=== PATIENT | male | born 1960 | race Caucasian/White ===

== ENCOUNTER 2016-06-08 10:30 | Inpatient (IN) | payer MEDICARE, MEDICAID ==
[~2016-06-08] VITALS: Ht 188 cm; Wt 120.4 kg
[~2016-06-08 10:30] MED LIST: ASPI81TA2 PO; BUSP15TA3 PO; CARV3.123 PO; FLUT12AE5 INH; HYDR-3841 PO; LEVA15HF5 INH; LISI-621 PO; OMEP20TA24 PO; QUET200T3 PO; QUET25TA73 PO; QUET300T3 PO; RISP50DI IM; ROSU20TA PO; [UNRECOGNIZED DRUG - CODE] PO
[2016-07-10] VITALS (26 sets, daily range): BP systolic 117–178; BP diastolic 70–96; PULSE 71–105; RESP 7–25; TEMP 97–97.8; O2SAT 75–100; Ht 188 cm; Wt 120.4 kg
[2016-07-10] MEDS ORDERED: HEPARIN SUB-Q 5,000 unit/0.5ml vial SQ ONE (07:00)
[2016-07-10] MEDS ORDERED: LR 1,000 ML IV SCH (07:00)
[2016-07-10] MEDS ORDERED: LIDOCAINE 1% (10mg/ml) 2ml SDV INJ ONE (07:00)
[2016-07-10] MEDS ORDERED: ERTAPENEM 1 G in NORMAL SALINE 100 ML IV ONE (08:00)
--- OUTSIDE RECORDS SUMMARY | 2016-07-10 08:52 | XMS REPORT | Referral Summary ---
Author Author [facility], [facility] Organization [facility] Address Unknown Phone Unavailable Care Team Providers Care Liquified Natural Gas Technician Name Role Phone Julian Garzon Primary Care Physician [phone] Encounter VC Date(s): 01/24/16 - 01/24/16 [facility], [address] [place] [address] Discharge Disposition: 01-Home or Self Care Attending Physician: George Sanford APRN Admitting Physician: George Sanford APRN Vital Signs Most recent to 1 oldest [Reference Range]: Temperature Tympanic 36.9 degC [36.6-38.1 degC] (01/24/16 8:53 AM) Peripheral Pulse 100 bpm Rate [60-100 bpm] (01/24/16 8:53 AM) Respiratory Rate 16 br/min [14-20 br/min] (01/24/16 8:53 AM) Blood Pressure 150/90 mmHg [90-140/60-90 mmHg] *HI* (01/24/16 8:53 AM) SpO2 97 % (01/24/16 8:53 AM) Problem List Condition Effective Dates Status Health Status Informant Allergies(Confirmed) Active Anxiety Active disorder(Confirmed) Asperger's Resolved disorder(Confirmed) Benign essential Active hypertension(Confirm ed) Bipolar(Confirmed) Resolved Bronchitis(Confirmed Active ) Drug Resolved overdose(Confirmed)1 Elevated blood < 12/09/13 Resolved pressure reading without diagnosis of hypertension(Confirm ed) High Active cholesterol(Confirme d) Insomnia(Confirmed) Active Bipolar Active disorder(Confirmed) Bed Active wetting(Confirmed) Obesity(Confirmed) Active patient Overweight(Confirmed Active ) Pneumonia(Confirmed) Active Reaction - to Resolved clozaril(Confirmed)2 Schizo affective Resolved disorder(Confirmed) Schizophrenia(Confir Resolved med)3 Suicide Resolved ideation(Confirmed)4 Tension Active headache(Confirmed) Diabetes mellitus, Active type 2(Confirmed) 1hospitalization 2013 2Seizures and granulocytopenia - 1990 3[facility] hospitalizations X 2 4hospitalization 2013 Allergies, Adverse Reactions, Alerts Substance Reaction Severity Status cloZAPine Active iodine Active Zoloft1 Active 1Causes Diarrhea Medications busPIRone 15 mg oral tablet 15 mg 1 tabs, Oral, BID, Anxiety, 0 Refill(s) Start Date: 10/27/15 Status: Ordered Crestor 20 mg oral tablet 20 mg 1 tabs, Oral, Daily, # 30 tabs, 6 Refill(s), Pharmacy: [facility] # [id number], 1 tabs Oral Daily Start Date: 11/30/15 Status: Ordered divalproex sodium 500 mg oral tablet, extended release 1,000 mg 2 tabs, Oral, Bedtime (once a day) Start Date: 11/01/15 Status: Ordered Flovent HFA 110 mcg/inh inhalation aerosol 220 mcg 2 puffs, Inhalation, BID, # 3 Each, 3 Refill(s), Pharmacy: [facility] #[id number] Start Date: 11/30/15 Status: Ordered Glucometer (DME) DME Item RELION PRIME PT TEST ONCE DAILY DX E11.9, See Instructions, # 1 Each , 0 Refill(s), Pharmacy: [id number], RELION PRIME ; PT TEST ONCE DAILY; DX E11.9, Supply Start Date: 09/16/15 Status: Ordered Glucometer Lancets (DME) DME Item RELION PRIME PT TEST ONCE DAILY DX E11.9, See Instructions, # 100 Each, 3 Refill(s), Pharmacy: [id number], RELION PRIME ; PT TEST ONCE DAILY; DX E11.9, Supply Start Date: 09/09/15 Status: Ordered Glucometer strips (DME) DME Item RELION PRIME PT TEST ONCE DAILY DX E11.9, See Instructions, # 100 Each, 3 Refill(s), Pharmacy: [id number], RELION PRIME ; PT TEST ONCE DAILY; DX E11.9, Supply Start Date: 09/09/15 Status: Ordered lisinopril 20 mg oral tablet See Instructions, TAKE 1 TABLET BY MOUTH DAILY, # 28 tabs, 5 Refill(s), eRx: [place], [facility], TAKE 1 TABLET BY MOUTH DAILY Start Date: 11/30/15 Status: Ordered omeprazole 20 mg oral delayed release capsule See Instructions, TAKE 1 CAPSULE BY MOUTH DAILY, # 28 caps, 5 Refill(s), eRx: [facility] [place], TAKE 1 CAPSULE BY MOUTH DAILY Start Date: 11/30/15 Status: Ordered QUEtiapine 25 mg oral tablet 25 mg 1 tabs, Oral, TID, Psychosis, 0 Refill(s) Start Date: 11/25/14 Status: Ordered QUEtiapine 400 mg oral tablet 400 mg 1 tabs, Oral, Daily, TAKE AT 6PM WITH SUPPER. TAKE WITH 50MG TAB, 0 Refill(s) Start Date: 09/09/14 Status: Ordered QUEtiapine 50 mg oral tablet 50 mg 1 tabs, Oral, Daily, TAKE AT 6PM WITH SUPPER. TAKE WITH 400MG TAB, 0 Refill(s) Start Date: 09/09/14 Status: Ordered RisperDAL Consta 50 mg/2 weeks intramuscular injection, extended release IntraMuscular, 0 Refill(s) Start Date: 02/04/14 Status: Ordered SEROquel XR Oral, qPM, 0 Refill(s) Start Date: 11/10/15 Status: Ordered Xopenex HFA 45 mcg/inh inhalation aerosol 1 puffs, Inhalation, q4hr, # 1 Each, 6 Refill(s), Pharmacy: [facility] # [id number] Start Date: 11/30/15 Status: Ordered Results No data available for this section Immunizations Vaccine Date Refusal Reason influenza virus vaccine, H1N1, inactivat 02/02/12 influenza virus vaccine, inactivated 01/24/16 influenza virus vaccine, inactivated 01/27/15 influenza virus vaccine, inactivated 02/04/14 influenza virus vaccine, live 01/17/13 Procedures Procedure Date Related Diagnosis Body Site Drug overdose1 2013 Schizoaffective disorder2 2013 Suicide ideation3 2011 Drug overdose4 2009 Drug overdose5 2008 Drug overdose6 2004 Drug reaction7 1990 Cyst - removed from chest Schizoaffective disorder8 1Suicide ideation 2He also has Asperger's syndrome. He was hospitalized for medication adjustment. 3Hospitalization 4Lorazepam 5Multiple drugs 6Lorazepam 7He was hospitalized with seizures and granulocytopenia secondary to Clozaril 8Was hospitalized at [place] in 1989, 1999, 2000; he had hospitalizations at [facility] twice in the past; Social History Social History Type Response Smoking Status Never smoker Assessment and Plan No data available for this section
--- OUTSIDE RECORDS SUMMARY | 2016-07-10 08:52 | XMS REPORT | Referral Summary ---
Author Author [facility], [facility] Organization [facility] Address Unknown Phone Unavailable Care Team Providers Care Independent Contractor Name Role Phone Julian Garzon Primary Care Physician [phone] Encounter Date(s): 03/14/16 - 03/14/16 [facility], [address] [place] [address] Discharge Diagnosis: Chest pain Discharge Diagnosis: Dizziness Discharge Diagnosis: Bipolar disorder Discharge Diagnosis: Diarrhea Discharge Diagnosis: High cholesterol Discharge Diagnosis: Anxiety disorder Discharge Diagnosis: Benign essential hypertension Discharge Diagnosis: Diabetes mellitus, type 2 Discharge Diagnosis: Central obesity Discharge Disposition: 01-Home or Self Care Attending Physician: Hayes Garzon MD Admitting Physician: Hayes Garzon MD Vital Signs Most recent to 1 oldest [Reference Range]: Temperature Tympanic 36.6 degC [36.6-38.1 degC] (03/14/16 12:58 PM) Peripheral Pulse 84 bpm Rate [60-100 bpm] (03/14/16 12:58 PM) Blood Pressure 109/61 mmHg [90-140/60-90 mmHg] (03/14/16 12:58 PM) Problem List Condition Effective Dates Status Health [...] Daily, # 30 tabs, 6 Refill(s), Pharmacy: [facility] # [id number], 1 tabs Oral Daily Start Date: 11/30/15 Status: Ordered divalproex sodium 500 mg oral tablet, extended release 1,000 mg 2 tabs, Oral, Bedtime (once a day) Start Date: 11/01/15 Status: Ordered Flovent HFA 110 mcg/inh inhalation aerosol 220 mcg 2 puffs, Inhalation, BID, # 3 Each, 3 Refill(s), Pharmacy: [facility] #[id number] Start Date: 11/30/15 Status: Ordered Glucometer (DME) DME Item RELION PRIME PT TEST ONCE DAILY DX E11.9, See Instructions, # 1 Each , 0 Refill(s), Pharmacy: [facility], RELION PRIME ; PT TEST ONCE DAILY; DX E11.9, Supply Start Date: 09/16/15 Status: Ordered Glucometer Lancets (DME) DME Item RELION PRIME PT TEST ONCE DAILY DX E11.9, See Instructions, # 100 Each, 3 Refill(s), Pharmacy: [facility], RELION PRIME ; PT TEST ONCE DAILY; DX E11.9, Supply Start Date: 09/09/15 Status: Ordered Glucometer strips (DME) DME Item RELION PRIME PT TEST ONCE DAILY DX E11.9, See Instructions, # 100 Each, 3 Refill(s), Pharmacy: [facility], RELION PRIME ; PT TEST ONCE DAILY; DX E11.9, Supply Start Date: 09/09/15 Status: Ordered lisinopril 20 mg oral tablet See Instructions, TAKE 1 TABLET BY MOUTH DAILY, # 28 tabs, 5 Refill(s), eRx: [place], [facility], TAKE 1 TABLET BY MOUTH DAILY Start Date: 11/30/15 Status: Ordered omeprazole 20 mg oral delayed release capsule See Instructions, TAKE 1 CAPSULE BY MOUTH DAILY, # 28 caps, 5 Refill(s), eRx: [facility] [employer] [place], TAKE 1 CAPSULE BY MOUTH DAILY Start [...] mg 1 tabs, Oral, Daily, TAKE AT 2 6PM WITH SUPPER. TAKE WITH 400MG TAB, 0 Refill(s) Start Date: 09/09/14 Status: Ordered RisperDAL Consta 50 mg/2 weeks intramuscular injection, extended release IntraMuscular, 0 Refill(s) Start Date: 02/04/14 Status: Ordered SEROquel XR Oral, qPM, 0 Refill(s) Start Date: 11/10/15 Status: Ordered Xopenex HFA 45 mcg/inh inhalation aerosol 1 puffs, Inhalation, q4hr, # 1 Each, 6 Refill(s), Pharmacy: [facility] # [id number] Start Date: 11/30/15 Status: Ordered Results Hematology Most recent to 1 oldest [Reference Range]: WBC [5.0-10.0 8.6 10*3/uL 10*3/uL] (03/14/16 2:20 PM) RBC [3.70-5.20] 4.43 (03/14/16 2:20 PM) Hgb [12.0-16.0 13.1 gm/dL gm/dL] (03/14/16 2:20 PM) Hct [40.0-54.0 %] 38.9 % *LOW* (03/14/16 2:20 PM) MCV [80.0-96.0 fL] 87.8 fL (03/14/16 2:20 PM) MCH [26.0-34.0 pg] 29.6 pg (03/14/16 2:20 PM) MCHC [32.0-36.0 33.7 gm/dL gm/dL] (03/14/16 2:20 PM) RDW [0.0-14.5 %] 13.9 % (03/14/16 2:20 PM) Platelet [150-400 193 10*3/uL 10*3/uL] (03/14/16 2:20 PM) MPV [8.8-14.8 fL] 10.6 fL (03/14/16 2:20 PM) Neutrophils [50-70 55 % %] (03/14/16 2:20 PM) Lymphocytes [20-40 29 % %] (03/14/16 2:20 PM) Monocytes [4-8 %] 15 % *HI* (03/14/16 2:20 PM) Eosinophils [0-6 %] 1 % (03/14/16 2:20 PM) Basophils [0-2 %] 0 % (03/14/16 2:20 PM) Neutro Absolute 4.77 10*3 [2.50-7.00 10*3] (03/14/16 2:20 PM) Lymph Absolute 2.49 10*3 [1.00-4.00 10*3] (03/14/16 2:20 PM) [place] Absolute 1.30 10*3 [0.20-0.80 10*3] *HI* (03/14/16 2:20 PM) Eos Absolute 0.06 10*3 [0.00-0.60 10*3] (03/14/16 2:20 PM) Baso Absolute 0.01 [0.00-0.30] (03/14/16 2:20 PM) Chemistry Most recent to 1 oldest [Reference Range]: Hgb A1c [4.1-5.6 %] 6.5 % *HI* (03/14/16 2:20 PM) eAvg Glucose 139.9 mg/dL (03/14/16 2:20 PM) Immunizations Vaccine Date Refusal Reason tetanus/diphth/pertuss (Tdap) adult/adol 03/14/16 influenza virus vaccine, H1N1, inactivat 02/02/12 influenza virus vaccine, inactivated 01/24/16 influenza virus vaccine, inactivated 01/27/15 influenza virus vaccine, inactivated 02/04/14 influenza virus vaccine, live 01/17/13 Procedures Procedure Date Related Diagnosis Body Site Drug overdose1 2013 Schizoaffective disorder2 2013 Suicide ideation3 2011 Drug overdose4 2008 Drug overdose5 2008 Drug overdose6 2004 Drug reaction7 1990 Cyst - removed from chest Schizoaffective disorder8 1Suicide ideation 2He also has Asperger's syndrome. He was hospitalized for medication adjustment. 3Hospitalization 4Lorazepam 5Multiple drugs 6Lorazepam 7He was hospitalized with seizures and granulocytopenia secondary to Clozaril 8Was hospitalized at [place] in 1989, 1999, 2000; he had hospitalizations at [facility] twice in the past; Social History Social History Type Response Smoking Status Never smoker Assessment and Plan Extracted from: Title: CRMMP Author: Hayes Garzon MD Date: 03/14/16 Impression and Plan Diagnosis Need for vaccination ([id number] Z23, Working, Medical). Chest pain (FLG01-TW R07.9, Discharge, Medical). Dizziness ([id number] R42, Discharge, Medical). Bipolar disorder (AQD53-DV F31.9, Discharge, Medical). Anxiety disorder (MZZ79-OG F41.9, Discharge, Medical). Diarrhea (KDF11-KV R19.7, Discharge, Medical). Benign essential hypertension (FFU95-[id number] I10, Discharge, Medical). Diabetes mellitus, type 2 (CEX21-RX E11.9, Discharge, Medical). High cholesterol (YLX92-ML E78.00, Discharge, Medical). Central obesity (TPJ04-WB E65, Discharge, Medical). Orders Orders (Selected) Outpatient Orders InProcess (In Process) eGFR: Ordered CBC w/ Differential: Hgb A1c: Canceled CMP: Troponin: Completed Boostrix (Tdap) intramuscular suspension: 0.5 mL, IntraMuscular, Once Message for Lab: Future (On Hold) BMP: Fasting Lipid Profile: Hgb A1c: .
--- OUTSIDE RECORDS SUMMARY | 2016-07-10 08:53 | XMS REPORT | Referral Summary ---
Author Author [facility], [facility] Organization [facility] Address Unknown Phone Unavailable Care Team Providers Care Guidance Adviser Name Role Phone Julian Garzon Primary Care Physician [phone] Encounter Date(s): 03/23/16 - 03/23/16 [facility], [address] [place] [address]- Discharge Diagnosis: Obesity Discharge Diagnosis: Chronic schizoaffective disorder Discharge Diagnosis: Benign essential hypertension Discharge Diagnosis: GERD (gastroesophageal reflux disease) Discharge Diagnosis: Diabetes mellitus, type 2 Discharge Diagnosis: Atypical chest pain Discharge Disposition: 01-Home or Self Care Attending Physician: Hayes Garzon MD Admitting Physician: Hayes Garzon MD Vital Signs Most recent to 1 oldest [Reference Range]: Peripheral Pulse 90 bpm Rate [60-100 bpm] (03/23/16 1:39 PM) Respiratory Rate 16 br/min [14-20 br/min] (03/23/16 1:39 PM) Blood Pressure 126/78 mmHg [90-140/60-90 mmHg] (03/23/16 1:39 PM) SpO2 94 % (03/23/16 1:39 PM) Problem List Condition Effective Dates Status Health Status Informant Allergies(Confirmed) Active Anxiety Active disorder(Confirmed) Asperger's Resolved disorder(Confirmed) Benign essential Active hypertension(Confirm ed) Bipolar(Confirmed) Resolved Bronchitis(Confirmed Active ) Chronic Active schizoaffective disorder(Confirmed) Drug Resolved overdose(Confirmed)1 Elevated blood < 12/09/13 Resolved pressure reading without diagnosis of hypertension(Confirm ed) GERD Active (gastroesophageal reflux disease)(Confirmed) High Active cholesterol(Confirme d) Insomnia(Confirmed) Active Bipolar Active disorder(Confirmed) Bed Active wetting(Confirmed) Obesity(Confirmed) Active patient Overweight(Confirmed Active ) Pneumonia(Confirmed) Active Reaction - to Resolved clozaril(Confirmed)2 Schizo affective Active disorder(Confirmed) Schizophrenia(Confir Resolved med)3 Suicide Resolved ideation(Confirmed)4 Tension Active headache(Confirmed) Diabetes mellitus, Active type 2(Confirmed) 1hospitalization 2013 2Seizures and granulocytopenia - 1990 3[facility] hospitalizations X 2 4hospitalization 2013 Allergies, Adverse Reactions, Alerts Substance Reaction Severity Status cloZAPine Active iodine Active Zoloft1 Active 1Causes Diarrhea Medications aspirin 81 mg, Oral, Daily, takes 1 PILL DAILY, 0 Refill(s) Start Date: 03/16/16 Status: Ordered busPIRone 15 mg oral tablet 15 mg 1 tabs, Oral, BID, Anxiety, 0 Refill(s) Start Date: 10/27/15 Status: Ordered carvedilol 3.125 mg oral tablet 3.125 mg 1 tabs, Oral, BID, 0 Refill(s) Start Date: 03/16/16 Status: Ordered Crestor 20 mg oral tablet 20 mg 1 tabs, Oral, Daily, # 30 tabs, 6 Refill(s), Pharmacy: [facility] # [id number], 1 tabs Oral Daily Start Date: 11/30/15 Status: Ordered divalproex sodium 500 mg oral tablet, extended release 1,000 mg 2 tabs, Oral, Bedtime (once a day) Start Date: 11/01/15 Status: Ordered Flovent HFA 110 mcg/inh inhalation aerosol 220 mcg 2 puffs, Inhalation, BID, # 3 Each, 3 Refill(s), Pharmacy: [facility] #[id number] Start Date: 11/30/15 Status: Ordered Glucometer (DME) DME Item RELION PRIME PT TEST ONCE DAILY DX E11.9, See Instructions, # 1 Each , 0 Refill(s), Pharmacy: [facility], RELION PRIME ; PT TEST ONCE DAILY; DX E11.9, Supply Start Date: 09/16/15 Status: Ordered Glucometer Lancets (DME) DME Item RELION PRIME PT TEST ONCE DAILY DX E11.9, See Instructions, # 100 Each, 3 Refill(s), Pharmacy: [facility], RELION PRIME ; PT TEST ONCE DAILY; DX E11.9, Supply Start Date: 09/09/15 Status: Ordered Glucometer strips (DME) DME Item RELION PRIME PT TEST ONCE DAILY DX E11.9, See Instructions, # 100 Each, 3 Refill(s), Pharmacy: [facility], RELION PRIME ; PT TEST ONCE DAILY; DX E11.9, Supply Start Date: 09/09/15 Status: Ordered lisinopril 20 mg oral tablet See Instructions, TAKE 1 TABLET BY MOUTH DAILY, # 28 tabs, 5 Refill(s), eRx: [place], TAKE 1 TABLET BY MOUTH DAILY Start Date: 11/30/15 Status: Ordered omeprazole 20 mg oral delayed release capsule See Instructions, TAKE 1 CAPSULE BY MOUTH BID FOR 2 WEEKS AFTER HOSPITAL STAY, # 28 caps, 5 Refill(s), eRx: [place], TAKE 1 CAPSULE BY MOUTH DAILY Start Date: 11/30/15 Status: Ordered QUEtiapine 25 mg oral tablet 25 mg 1 tabs, Oral, TID, as needed for Psychosis, 0 Refill(s) Start Date: 11/25/14 Status: [...] 0 Refill(s) Start Date: 02/04/14 Status: Ordered Xopenex HFA 45 mcg/inh inhalation aerosol 1 puffs, Inhalation, q4hr, # 1 Each, 6 Refill(s), Pharmacy: [facility] # [id number] Start Date: 11/30/15 Status: Ordered Results No data available for this section Immunizations Vaccine Date Refusal Reason tetanus/diphth/pertuss (Tdap) adult/adol 03/14/16 influenza virus vaccine, H1N1, inactivat 02/02/12 influenza virus vaccine, inactivated 01/24/16 influenza virus vaccine, inactivated 01/27/15 influenza virus vaccine, inactivated 02/04/14 influenza virus vaccine, live 01/17/13 Procedures Procedure Date Related Diagnosis Body Site Drug overdose1 2013 Schizoaffective disorder2 2014 Suicide ideation3 2011 Drug overdose4 2009 Drug overdose5 2009 Drug overdose6 2005 Drug reaction7 1990 Cyst - removed from chest Schizoaffective disorder8 1Suicide ideation 2He also has Asperger's syndrome. He was hospitalized for medication adjustment. 3Hospitalization 4Lorazepam 5Multiple drugs 6Lorazepam 7He was hospitalized with seizures and granulocytopenia secondary to Clozaril 8Was hospitalized at [place] in 1989, 1999, 2000; he had hospitalizations at [facility] twice in the past; Social History Social History Type Response Smoking Status Never smoker Assessment and Plan Extracted from: Title: Hospital follow-up/TCM Author: Hayes Garzon MD Date: 03/23/16 Assessment/Plan Overall he seems to be stabilized and has made some lifestyle efforts. I encouraged him and staying off the pop. Encourage more regular exercise. Follow-up with me again in 3 months. He has follow-up plans with Dr. Anne in one month. 1.Diabetes mellitus, type 2 2.Obesity 3.Benign essential hypertension 4.Atypical chest pain 5.GERD (gastroesophageal reflux disease) 6.Chronic schizoaffective disorder
--- OUTSIDE RECORDS SUMMARY | 2016-07-10 08:53 | XMS REPORT | Continuity of Care Document ---
Author Author [facility] Organization [facility] Address Unknown Phone Unavailable Allergies Active Description Code Type Severity Reaction Onset Reported/Identified Relationship to Patient Clinical Status Yes cloZAPine NKMA N/A N/A 08/14/2013 Yes iodine NKMA N/A N/A 08/14/2013 Yes potassium iodide NKMA N/A N/A 09/17/2013 Yes simvastatin NKMA N/A muscle pain 09/17/2013 Yes sodium iodide NKMA N/A N/A 09/17/2013 Yes Zoloft NKMA N/A N/A 06/10/2014 Medications Problems Procedures Results Encounters ACCT No. Visit Date/Time Discharge Status Pt. Type Provider Facility Loc./Unit Complaint [id number] 06/25/2013 08:50:00 06/25/2013 23 :59:59 CLS Outpatient [id number] 06/04/2013 10:10:00 06/04/2013 23 :59:59 CLS Outpatient [id number] 04/23/2013 10:40:00 04/23/2013 23 :59:59 CLS Outpatient [id number] 03/19/2013 10:20:00 03/19/2013 23 :59:59 CLS Outpatient
--- OUTSIDE RECORDS SUMMARY | 2016-07-10 08:53 | XMS REPORT | Continuity of Care Document ---
Author Author [facility] Organization [facility] Address Unknown Phone Unavailable Support Name Relationship Address Phone ANABELA PINA MD Caregiver [address] [place] [address] [place] [address] GILMAR ESPINO MD Caregiver [address] [place] [address] Unavailable SHYANNE VAUGHAN MD Caregiver [address] [place] [address] [place] [phone] ABDOULAYE ZAMORANO Next Of Kin Unknown [phone] Insurance Providers Payer Name Policy Number Subscriber Name Relationship Medicare [id number] Yvonne Curry 20 Self Medicaid [id number] Yvonne Curry Self Advance Directives Directive Response Recorded Date/Time Advanced Directives Type None 12/10/13 4:55pm Problems Medical Problems Problem Onset Date Status Bipolar disorder Unknown Active Schizoaffective disorder Unknown Active suicidal ideation with attempt Unknown Active Medications Medication Dose Route Sig Days/Qty Instructions Order Date Discontinued Date Status [Albuterol] 2 Puffs IH FOUR TIMES DAILY 12/14/08 12/14/08 Discontinued [Artane] 0.5 Tab PO TWICE A DAY 12/14/08 05/27/12 Discontinued Buspirone Hcl 2 Tab PO THREE TIMES A DAY 12/31/08 05/27/12 Discontinued Citalopram Hydrobromide 1 Tab PO DAILY 12/14/08 05/27/12 Discontinued Divalproex Sodium 3 Tab PO BEDTIME 12/31/08 Active [Flovent Hfa 78482 Gm] 2 Puffs IH TWICE A DAY 12/31/08 05/27/12 Discontinued Ziprasidone Hcl 1 Tab PO TWICE A DAY 12/31/08 05/27/12 Discontinued Ferrous Sulfate 1 Tab PO DAILY 12/31/08 05/27/12 Discontinued Lisinopril 1 Tab PO DAILY 12/31/08 Active Psyllium Seed THREE TIMES A DAY 12/31/08 05/27/12 Discontinued Multivitamins 1 Tab PO DAILY 12/31/08 05/27/12 Discontinued Lansoprazole 1 Tab PO DAILY 12/31/08 05/27/12 Discontinued Risperidone Microspheres 50 Mg IM EVERY TWO WEEKS 12/14/08 Active Quetiapine Fumarate 1 Tab PO DAILY 12/31/08 05/27/12 Discontinued Trazodone Hcl 2 Tab PO BEDTIME 12/31/08 05/27/12 Discontinued Ascorbic Acid 1 Tab PO AM 12/31/08 05/27/12 Discontinued [Xopenex] 12/14/08 Active Clonazepam 1 Mg PO NEEDED 1 Qty 12/31/08 05/27/12 Discontinued Citalopram Hydrobromide 1 Tab PO DAILY 12/31/08 05/27/12 Discontinued [Albuterol] 12/30/08 05/27/12 Discontinued [Flovent] 12/30/08 Active Quetiapine Fumarate 400 Mg PO DAILY 05/27/12 Active Risperidone 1 Mg PO TWICE A DAY 05/27/12 Active Omeprazole 20 Mg PO DAILY 05/27/12 Active Lovastatin 40 Mg PO BEDTIME Take one tablet, by mouth, one time a day ( at bedtime). 12/10/13 Active Social History Social History Problem Response Recorded Date/Time Smoking Status Never smoker 12/10/2013 5:12pm Hx Substance Use Yes 12/10/2013 5:12pm Hx Alcohol Use No 12/10/2013 5:12pm Query Response Start Date Stop Date Smoking Status Never smoker Hospital Discharge Instructions No hospital discharge instructions. Plan of Care No plan of care. Functional Status Query Response Date Recorded Physical Hygiene Self December 10, 2013 5:12pm Disabilities Visual December 10, 2013 5:12pm Devices Used Glasses December 10, 2013 5:12pm Dressing Self December 10, 2013 5:12pm Ambulation Self December 10, 2013 5:12pm Diet Self December 10, 2013 5:12pm Mental Status Alert Oriented December 10, 2013 11:58pm Disabilities Visual December 10, 2013 5:12pm Devices Used Glasses December 10, 2013 5:12pm Physical Hygiene Self December 10, 2013 5:12pm Dressing Self December 10, 2013 5:12pm Ambulation Self December 10, 2013 5:12pm Diet Self December 10, 2013 5:12pm Allergies, Adverse Reactions, Alerts Allergen Type Severity Reaction Status Last Updated Iodine Allergy Unknown Active 05/27/13 Clozapine Allergy Severe Active 05/27/13 Immunizations Name Given Type Hx Influenza Vaccination Y FALL 2012 Historical Hx Pneumococcal Vaccination Y UNSURE Historical Hx Influenza Vaccination Y FALL 2012 Historical Vital Signs Acute Vital Signs Vital Response Date/Time Temperature (Fahrenheit) 97.4 deg F (96.8 - 99.1) Temperature (Calculated Celsius) 36.66190 degrees C (36.0 - 37.3) Pulse Rate (adult) 71 bpm (60 - 100) Respiratory Rate 15 breaths/min (10 - 20) O2 Sat by Pulse Oximetry 96 % (90 - 100) Blood Pressure 126/72 mm Hg Height 6 ft 2 in Weight 280 lb Body Mass Index 35.0 kg/m^2 Results Test Source Date Result Interp. Ref. Range Comments Acetaminophen Level December 10, 2013 4:44pm < 10 UG/ML L 10-30 TOXIC <4 HR POST INGESTION: >150 MG/L;TOXIC <12 HR POST INGESTION: >50 MG/L Activated Partial Thromboplast Time March 08, 2012 11:45pm 30.5 SEC N 24-36 Alanine Aminotransferase (ALT/SGPT) December 10, 2013 4:44pm 25 U/L N 21- 72 Albumin December 10, 2013 4:44pm 4.2 G/DL N 3.5-5.0 Albumin/Globulin Ratio December 10, 2013 4:44pm 1.4 RATIO N 1.1-2.2 Alcohol, Quantitative December 10, 2013 4:44pm <10 MG/DL - Alkaline Phosphatase December 10, 2013 4:44pm 77 U/L N 38-126 Anion Gap December 10, 2013 4:44pm 12 MEQ/L N 5-15 Aspartate Amino Transf (AST/SGOT) December 10, 2013 4:44pm 20 U/L N 17-59 BUN/Creatinine Ratio December 10, 2013 4:44pm 11 RATIO N 6-26 Basophils # (Auto) December 10, 2013 4:44pm 0.0 T/MM3 N 0-0.2 Basophils (%) (Auto) December 10, 2013 4:44pm 0.1 % N 0-2 Blood Urea Nitrogen December 10, 2013 4:44pm 9.0 MG/DL N 9-20 Calcium Level December 10, 2013 4:44pm 9.2 MG/DL N 8.4-10.2 Calculated Osmolality December 10, 2013 4:44pm 273 MOSM/KG N 261-280 Carbon Dioxide Level December 10, 2013 4:44pm 28 MEQ/L N 22-30 Chloride Level December 10, 2013 4:44pm 102 MEQ/L N 98-107 Conjugated Bilirubin July 18, 2012 3:27pm 0.00 MG/DL N 0.00-0.30 Creatinine December 10, 2013 4:44pm 0.8 MG/DL N 0.8-1.5 D-Dimer August 18, 2013 4:47pm 214 NG/ML N 0-230 <224 NG/ML=PRESUMPTIVE NEGATIVE FOR PE OR DVT>224 NG/ML=ADDITIONAL EVALUATION FOR PE OR DVT RECOMMENDED Eosinophils # (Auto) December 10, 2013 4:44pm 0.2 T/MM3 N 0-0.5 Eosinophils (%) (Auto) December 10, 2013 4:44pm 2.2 % N 0-4 Free Thyroxine December 10, 2013 4:44pm 0.75 NG/DL L 0.78-2.19 Globulin December 10, 2013 4:44pm 3.0 G/DL N 2.4-3.6 Glucose Level December 10, 2013 4:44pm 113 MG/DL H 75-110 Hematocrit December 10, 2013 4:44pm 40.3 % L 41-53 Hemoglobin December 10, 2013 4:44pm 12.9 GM/DL L 13.5-17.5 Lymphocytes # (Auto) December 10, 2013 4:44pm 2.4 T/MM3 N 1-4.8 Lymphocytes (%) (Auto) December 10, 2013 4:44pm 33.8 % N 23-45 Mean Corpuscular Hemoglobin December 10, 2013 4:44pm 29.1 UUG N 26-34 Mean Corpuscular Hemoglobin Concent December 10, 2013 4:44pm 32.0 GM/DL N 31-37 Mean Corpuscular Volume December 10, 2013 4:44pm 91.0 UM3 N 80-100 Mean Platelet Volume December 10, 2013 4:44pm 11.2 UM3 N 9.4-12.4 Monocytes # (Auto) December 10, 2013 4:44pm 1.0 T/MM3 H 0-0.8 Monocytes (%) (Auto) December 10, 2013 4:44pm 14.7 % H 0-9.0 Neutrophils # (Auto) December 10, 2013 4:44pm 3.4 T/MM3 N 1.8-7.7 Neutrophils (%) (Auto) December 10, 2013 4:44pm 48.9 % N 33-66 Platelet Count December 10, 2013 4:44pm 195 T/MM3 N 130-400 Potassium Level December 10, 2013 4:44pm 4.5 MEQ/L N 3.6-5 Prothromb Time International Ratio March 08, 2012 11:45pm 0.95 N 0.86 -1.10 THERAPUTIC RANGE=2.00-3.00 FOR ANTI-THROMBOSIS THERAPUTIC RANGE=2.50- 3.50 FOR IMPLANTED VALVE RDW Standard Deviation December 10, 2013 4:44pm 46.3 FL N 36.9-50.2 Red Blood Count December 10, 2013 4:44pm 4.43 M/MM3 L 4.50-5.90 Salicylates Level December 10, 2013 4:44pm < 1.0 MG/DL L 2-20 Sodium Level December 10, 2013 4:44pm 142 MEQ/L N 134-144 Tests Not Done December 14, 2008 5:04pm Not done - Has specimen been collected/obtained? Y Thyroid Stimulating Hormone (TSH) December 10, 2013 4:44pm 4.76 MIU/L H 0.47-4.68 Total Bilirubin December 10, 2013 4:44pm 0.40 MG/DL N 0.20-1.30 Total Protein December 10, 2013 4:44pm 7.2 G/DL N 6.3-8.2 Troponin I March 08, 2012 11:45pm < 0.012 ng/ml 0-0.12 Unconjugated Bilirubin July 18, 2012 3:27pm 0.00 MG/DL N 0.00-1.10 Urine Bilirubin December 10, 2013 5:50pm Negative - Has specimen been collected/obtained? Y Urine Blood December 10, 2013 5:50pm Negative - Has specimen been collected/obtained? Y Urine Collection Type December 10, 2013 5:50pm Cleancatch-midstream - Has specimen been collected/obtained? Y Urine Color December 10, 2013 5:50pm Yellow - Has specimen been collected/obtained? Y Urine Glucose (UA) December 10, 2013 5:50pm Negative - Has specimen been collected/obtained? Y Urine Ketones December 10, 2013 5:50pm Negative - Has specimen been collected/obtained? Y Urine Leukocyte Esterase December 10, 2013 5:50pm Negative - Has specimen been collected/obtained? Y Urine Nitrite December 10, 2013 5:50pm Negative - Has specimen been collected/obtained? Y Urine Protein December 10, 2013 5:50pm Negative - Has specimen been collected/obtained? Y Urine Specific [place] December 10, 2013 5:50pm <=1.005 L - Has specimen been collected/obtained? Y Urine Turbidity December 10, 2013 5:50pm Clear - Has specimen been collected/obtained? Y Urine Urobilinogen December 10, 2013 5:50pm 0.2 EU/DL - Has specimen been collected/obtained? Y Urine pH December 10, 2013 5:50pm 5.5 - Has specimen been collected/ obtained? Y Valproic Acid (Depakene) Level December 10, 2013 4:44pm 60.9 UG/ML N 50- 120 White Blood Count December 10, 2013 4:44pm 7.0 T/MM3 N 4.5-11.0 Chemistry Specimen Hemolysis December 10, 2013 4:44pm < 15 0-25 0-25: No Hemolysis.26-70: Slight Hemolysis - can falsely elevate K and Urine Protein. 71-285: Moderate Hemolysis - can falsely elevate K, Troponin I, CA 19-9, PTH, CSF GLucose, and Urine Protein, and can falsely decrease Phenytoin. 286-999: Gross Hemolysis - can falsely elevate K, Troponin I, CA 19-9, PTH, CSF Glucose, and Urine Protine, and can falsely decrease Phenytoin. Recommend specimen recollection. Urinalysis Comment December 10, 2013 5:50pm Microscopic not ind. - Has specimen been collected/obtained? Y Lab Scanned Report December 10, 2013 7:42pm REFERENCE LAB [id number] - EKG December 31, 2008 7:09pm Complete - Turbidity December 10, 2013 4:44pm < 20 0-20 Glomerular Filtration Rate Calc December 10, 2013 4:44pm 102 - Immature Granulocyte # (Auto) December 10, 2013 4:44pm 0.02 T/MM3 N 0.00- 0.03 Immature Granulocyte % (Auto) December 10, 2013 4:44pm 0.3 % N 0.0-0.5 Icterus Index December 10, 2013 4:44pm < 2 0-7 EG-Glm-W-Type Natriuretic Peptide March 08, 2012 11:45pm 67 PG/ML N 0 -175 Rule in cut points: <50 years old=450; 50-75 years old=900; >75 years old=1800; When utilizing ProBNP rule-in cut points, adjustment for impaired renal function is typically not required. C. difficile Toxin B Gene (PCR) July 21, 2013 12:30am Negative - If Toxin A is clinically indicated, treat accordingly. Procedures No known history of procedures. Encounters Encounter Location Date/Time Departed Emergency Room [facility] 12/10/13 4:53pm Recent Diagnosis
--- OUTSIDE RECORDS SUMMARY | 2016-07-10 08:55 | XMS REPORT | Referral Summary ---
Author Author [facility] Organization [facility] Address Unknown Phone Unavailable Care Team Providers Care Corporate Communications Specialist Name Role Phone Julian Garzon Primary Care Physician [phone] Encounter VC Date(s): 05/10/16 - 05/10/16 [facility] [address] [place] [address] [place] [address]- Discharge Diagnosis: Rectal adenoma Discharge Disposition: 01-Home or Self Care Attending Physician: Ronald Montez MD Admitting Physician: Ronald Montez MD Referring Physician: Hayes Garzon MD Vital Signs Most recent to 1 oldest [Reference Range]: Temperature Tympanic 36.7 degC [36.6-38.1 degC] (05/10/16 2:58 PM) Problem List Condition Effective Dates Status [...] tablet 3.125 mg 1 tabs, Oral, BID, # 60 tabs, 6 Refill(s), Pharmacy: [facility] # [id number], 1 tabs Oral BID Start Date: 04/04/16 Status: Ordered Crestor 20 mg oral tablet 20 mg 1 tabs, Oral, Daily, # 30 tabs, 6 Refill(s), Pharmacy: [facility] # [id number], 1 tabs Oral Daily Start Date: 11/30/15 Status: Ordered divalproex sodium 500 mg oral tablet, extended release 1,000 mg 2 tabs, Oral, Bedtime (once a day) Start Date: 11/01/15 Status: Ordered erythromycin 250 mg oral delayed release capsule See Instructions, 4 caps (1g) by mouth on 06/07/2016 at 1pm, 2pm and 1100pm with clear liquids only, # 12 tabs, 0 Refill(s), Pharmacy: [facility] # [id number], 4 caps (1g) by mouth on 06/07/2016 at 1pm, 2pm and 1100pm with clear liquids only Start Date: 06/07/16 Stop Date: 06/07/16 Status: Ordered Flovent HFA 110 mcg/inh inhalation aerosol 220 mcg 2 puffs, Inhalation, BID, # 3 Each, 3 Refill(s), Pharmacy: [facility] #[id number] Start Date: 11/30/15 Status: Ordered Glucometer (DME) DME Item RELION PRIME PT TEST ONCE DAILY DX E11.9, See Instructions, # 1 Each , 0 Refill(s), Pharmacy: [id number], RELION PRIME ; PT TEST ONCE DAILY; DX E11.9, Supply Start Date: 09/16/15 Status: Ordered Glucometer Lancets (DME) DME Item RELION PRIME PT TEST ONCE DAILY DX E11.9, See Instructions, # 100 Each, 3 Refill(s), Pharmacy: [id number], RELION PRIME ; PT TEST ONCE DAILY; DX E11.9, Supply Start Date: 09/09/15 Status: Ordered Glucometer strips (DME) DME Item RELION PRIME PT TEST ONCE DAILY DX E11.9, See Instructions, # 100 Each, 3 Refill(s), Pharmacy: [id number], RELION PRIME ; PT TEST ONCE DAILY; DX E11.9, Supply Start Date: 09/09/15 Status: Ordered lisinopril 20 mg oral tablet See Instructions, TAKE 1 TABLET BY MOUTH DAILY, # 28 tabs, 5 Refill(s), eRx: [facility], TAKE 1 TABLET BY MOUTH DAILY Start Date: 11/30/15 Status: Ordered neomycin 500 mg oral tablet See Instructions, 2 tabs by mouth on 06/07/2016 at 1pm, 2pm and 11pm with clear liquids., # 6 tabs, 0 Refill(s), Pharmacy: [facility] #[id number], 2 tabs by mouth on 06/07/2016 at 1pm, 2pm and 11pm with clear liquids. Start Date: 06/07/16 Stop Date: 06/07/16 Status: Ordered omeprazole 20 mg oral delayed release capsule See Instructions, TAKE ONE CAPSULE BY MOUTH DAILY, # 90 caps, eRx: [facility] #[id number] Start Date: 04/04/16 Status: Ordered QUEtiapine 25 mg oral tablet [...] q4hr, # 1 Each, 6 Refill(s), Pharmacy: [facility] # [id number] Start Date: 11/30/15 Status: Ordered Results No data available for this section Immunizations Given and Recorded Vaccine Date Status Refusal Reason tetanus/diphth/pertuss (Tdap) adult/adol 03/14/16 Given influenza virus vaccine, H1N1, inactivat 02/02/12 Given influenza virus vaccine, inactivated 01/24/16 Given influenza virus vaccine, inactivated 01/27/15 Given influenza virus vaccine, inactivated 02/04/14 Recorded influenza virus vaccine, live 01/17/13 Given Procedures Procedure Date Related Diagnosis Body Site Colonoscopic polypectomy1 05/05/16 Drug overdose2 2013 Schizoaffective disorder3 2013 Suicide ideation4 2011 Drug overdose5 2008 Drug overdose6 2008 Drug overdose7 2004 Drug reaction8 1990 Cyst - removed from chest Schizoaffective disorder9 1Large rectal tubulovillous adenoma encompassing the majority of the lumen of the rectosigmoid junction, tubular adenoma at the hepatic flexure. 2Suicide ideation 3He also has Asperger's syndrome. He was hospitalized for medication adjustment. 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
--- OUTSIDE RECORDS SUMMARY | 2016-07-10 08:55 | XMS REPORT | Referral Summary ---
Author Author [facility] Organization [facility] Address Unknown Phone Unavailable Care Team Providers Care Spice Blender Name Role Phone Julian Garzon Primary Care Physician [phone] Encounter VC Date(s): 02/01/16 - 02/01/16 [facility] [address] [place] [address] [place] [id number] Discharge Diagnosis: Blood in stool Discharge Disposition: 01-Home or Self Care Attending Physician: Ronald Montez MD Admitting Physician: Ronald Montez MD Referring Physician: Hayes Garzon MD Vital Signs Most recent to 1 oldest [Reference Range]: Temperature Tympanic 36.8 degC [36.6-38.1 degC] (02/01/16 1:31 PM) Peripheral Pulse 104 bpm Rate [60-100 bpm] *HI* (02/01/16 1:31 PM) Blood Pressure 136/84 mmHg [90-140/60-90 mmHg] (02/01/16 1:31 PM) SpO2 93 % (02/01/16 1:31 PM) Problem List Condition Effective Dates Status [...] 1990 3[facility] hospitalizations X 2 4hospitalization 2014 Allergies, Adverse Reactions, Alerts Substance Reaction Severity Status cloZAPine Active iodine Active Zoloft1 Active 1Causes Diarrhea Medications busPIRone 15 mg oral tablet 15 mg 1 tabs, Oral, BID, Anxiety, 0 Refill(s) Start Date: 10/27/15 Status: Ordered Crestor 20 mg oral tablet 20 mg 1 tabs, Oral, Daily, # 30 tabs, 6 Refill(s), Pharmacy: [facility] # [id number], 1 tabs Oral Daily Start Date: 11/30/15 Status: Ordered divalproex sodium 500 mg oral tablet, extended release 1,000 mg 2 tabs, Oral, Bedtime (once a day) Start Date: 11/01/15 Status: Ordered Flovent HFA 110 mcg/inh inhalation aerosol 220 mcg 2 puffs, Inhalation, BID, # 3 Each, 3 Refill(s), Pharmacy: [facility] #[id number] Start Date: 11/30/15 Status: Ordered Glucometer (DME) DME Item RELION PRIME PT TEST ONCE DAILY DX E11.9, See Instructions, # 1 Each , 0 Refill(s), Pharmacy: [id number], RELION PRIME ; PT TEST ONCE DAILY; DX E11.9, Supply Start Date: 09/16/15 Status: Ordered Glucometer Lancets (DME) DME Item RELION PRIME PT TEST ONCE DAILY DX E11.9, See Instructions, # 100 Each, 3 Refill(s), [facility], RELION PRIME ; PT TEST ONCE DAILY; DX E11.9, Supply Start Date: 09/09/15 Status: Ordered Glucometer strips (DME) DME Item RELION PRIME PT TEST ONCE DAILY DX E11.9, See Instructions, # 100 Each, 3 Refill(s), [id number], RELION PRIME ; PT TEST ONCE DAILY; DX E11.9, Supply Start Date: 09/09/15 Status: Ordered lisinopril 20 mg oral tablet See Instructions, TAKE 1 TABLET BY MOUTH DAILY, # 28 tabs, 5 Refill(s), eRx: [facility], TAKE 1 TABLET BY MOUTH DAILY Start Date: 11/30/15 Status: Ordered omeprazole 20 mg oral delayed release capsule See Instructions, TAKE 1 CAPSULE BY MOUTH DAILY, # 28 caps, 5 Refill(s), eRx: [facility], TAKE 1 CAPSULE BY MOUTH [...] q4hr, # 1 Each, 6 Refill(s), Pharmacy: [facility] # [id number] Start Date: 11/30/15 Status: Ordered Results No [...] granulocytopenia secondary to Clozaril 8Was hospitalized at [place] in 1989, 1999, 2000; he had hospitalizations at [facility] twice in the past; Social History Social History Type Response Smoking Status Never smoker Assessment and Plan Extracted from: Title: Ambulatory Patient Education Author: Ronald Montez MD Date: Family Medicine Gastrointestinal Bleeding Gastrointestinal (GI) bleeding means there is bleeding somewhere along the digestive tract, between the mouth and anus. CAUSES There are many different problems that can cause GI bleeding. Possible causes include: Esophagitis. This is inflammation, irritation, or swelling of the esophagus. Hemorrhoids.These are veins that are full of blood (engorged) in the rectum. They cause pain, inflammation, and may bleed. Anal fissures.These are areas of painful tearing which may bleed. They are often caused by passing hard stool. Diverticulosis.These are pouches that form on the colon over time, with age, and may bleed significantly. Diverticulitis.This is inflammation in areas with diverticulosis. It can cause pain, fever, and bloody stools, although bleeding is rare. Polyps and cancer. Colon cancer often starts out as precancerous polyps. Gastritis and ulcers.Bleeding from the upper gastrointestinal tract ( near the stomach) may travel through the intestines and produce black, sometimes tarry, often bad smelling stools. In certain cases, if the bleeding is fast enough, the stools may not be black, but red. This condition may be life -threatening. SYMPTOMS Vomiting bright red blood or material that looks like coffee grounds. Bloody, black, or tarry stools. DIAGNOSIS Your caregiver may diagnose your condition by taking your history and performing a physical exam. More tests may be needed, including: X-rays and other imaging tests. Esophagogastroduodenoscopy (EGD). This test uses a flexible, lighted tube to look at your esophagus, stomach, and small intestine. Colonoscopy. This test uses a flexible, lighted tube to look at your colon. TREATMENT Treatment depends on the cause of your bleeding. For bleeding from the esophagus, stomach, small intestine, or colon, the caregiver doing your EGD or colonoscopy may be able to stop the bleeding as part of the procedure. Inflammation or infection of the colon can be treated with medicines. Many rectal problems can be treated with creams, suppositories, or warm baths. Surgery is sometimes needed. Blood transfusions are sometimes needed if you have lost a lot of blood. If bleeding is slow, you may be allowed to go home. If there is a lot of bleeding, you will need to stay in the hospital for observation. HOME CARE INSTRUCTIONS Take any medicines exactly as prescribed. Keep your stools soft by eating foods that are high in fiber. These foods include whole grains, legumes, fruits, and vegetables. Prunes (1 to 3 a day) work well for many people. Drink enough fluids to keep your urine clear or pale yellow. SEEK IMMEDIATE MEDICAL CARE IF: Your bleeding increases. You feel lightheaded, weak, or you faint. You have severe cramps in your back or abdomen. You pass large blood clots in your stool. Your problems are getting worse. MAKE SURE YOU: Understand these instructions. Will watch your condition. Will get help right away if you are not doing well or get worse. This information is not intended to replace advice given to you by your health care provider. Make sure you discuss any questions you have with your health care provider. Document Released: 03/30/2001 Document Revised: 03/19/2013 Document Reviewed: [employer] Patient Education 2016 [employer] No follow up information was provided. Extracted from: Title: Office Visit Note Author: Ronald Montez MD Date: 02/01/16 Assessment/Plan 1.Blood in stool Ordered: Office Visit Level 4 Est 54849 Plan: colonoscopy I once again informed the patient and his caser shoe parts that I would recommendproceeding with a colonoscopy for further evaluation of his rectal bleeding. Risk of endoscopy was discussed with the patient. Risks include but are not inclusive of bleeding and/or perforation requiring surgery. Patient understood and was scheduled. Patient's caser shoe parts wassupposed to work with the patient in regards tohis bowel prepthe day prior to his colonoscopy.
--- OUTSIDE RECORDS SUMMARY | 2016-07-10 08:55 | XMS REPORT | Continuity of Care Document ---
Author Author [facility] Organization [facility] Address Unknown Phone Unavailable Support Name Relationship Address Phone DANIEL SWEENEY MD Caregiver [address] [place] [address] [place] [address] Unavailable KATYA SAEZ FACS, MD Caregiver [address] [place] [address] [place] [address] Unavailable ABDOULAYE ZAMORANO Next Of Kin [address] [place] [address] Insurance Providers Guarantor Yvonne Curry Address [address] [place] [address] Email [email or web address] Payer Medicaid Policy Number [id number] Subscriber's Name Yvonne Curry Relationship 18 Self Effective Date 04/16/16 Expiration Date 05/16/16 Payer Medicare Policy Number [id number] Subscriber's Name Yvonne Curry Relationship 18 Self Effective Date 06/14/82 Advance Directives Directive Response Recorded Date/Time Ordered Resuscitation Status Full Code 05/04/16 4:08pm Resuscitation Documents on File No 05/05/16 7:45am DPOA for Healthcare Only No 05/05/16 7:45am Living Will No 05/05/16 7:45am Problems Active Problems Medical Problem Onset Date Status Asthma Unknown Chronic Bipolar disorder Unknown Chronic Diabetes mellitus Unknown Chronic Diarrhea Unknown Acute Diarrhea Unknown Acute Dizziness Unknown Acute ECG abnormality Unknown Acute Elevated troponin Unknown Acute GERD (gastroesophageal reflux disease) Unknown Hyperlipidemia Unknown Chronic Hypertension Unknown Chronic Orthostatic hypotension Unknown Schizoaffective disorder Unknown Chronic Schizophrenia Unknown Chronic suicidal ideation with attempt Unknown Acute Past Problems Medical Problem Onset Date Atypical chest pain Unknown Chest pain Unknown Chest pain Unknown Orthostatic hypotension Unknown Volume depletion Unknown Medications Current Home Medications Medication Dose Units Route Directions Days Qty Instructions Start Date Aspirin 81 Mg Tab.chew 81 Mg Oral Daily 05/03/16 Buspirone Hcl 15 Mg Tablet 15 Mg Oral Twice A Day 12/27/15 Carvedilol 3.125 Mg Tablet 3.125 Mg Oral Twice A Day 05/03/16 Divalproex Sodium (Depakote Er) 500 Mg Tab.sr.24h 1,000 Mg Oral Bedtime 12/31/08 Fluticasone Propionate (Flovent Hfa 110MCG) 120 Puff/12 G Inhaler 2 Puff Inhalation Twice A Day 12/27/15 Hydroxyzine Pamoate 25 Mg Capsule 1 Cap Oral Twice A Day 10 Levalbuterol Tartrate (Xopenex Hfa) 15 Gm Hfa.aer.ad 1 Puff Inhalation Every 4 Hours as needed for Prn Orders 12/27/15 Lisinopril 20 Mg Tablet 20 Mg Oral Bedtime 12/27/15 Omeprazole (Prilosec) 20 Mg Tablet.dr 20 Mg Oral Twice A Day 02/26 Quetiapine Fumarate 25 Mg Tablet 25 Mg Oral Daily as needed for Anxiety 12/27/15 Quetiapine Fumarate (Seroquel Xr) 200 Mg Tablet 200 Mg Oral Give With Supper 05/03/16 Quetiapine Fumarate (Seroquel Xr) 300 Mg Tablet 300 Mg Oral Give With Supper 05/03/16 Risperidone Microspheres (Risperdal Consta) 50 Mg/2 Ml/Syr Syringe 50 Mg Intramusc Every 2 Weeks 12/14/08 Rosuvastatin Calcium (Crestor) 20 Mg Tablet 20 Mg Oral Bedtime Past Home Medications Medication Directions Ordered Status Albuterol 90 Mcg Inhaler, 12/30/08 Discontinued Albuterol 90 Mcg Inhaler, 2 Puffs Inhalation Four Times Daily 12/14/08 Discontinued Artane 2 Mg Tablet, 0.5 Tab Oral Twice A Day 12/14/08 Discontinued Ascorbic Acid (Vitamin C) 1,000 Mg Tablet, 1 Tab Oral Am 12/31/08 Discontinued Buspirone Hcl (Buspar) 10 Mg Tablet, 2 Tab Oral Three Times A Day 12/31/08 Discontinued Citalopram Hydrobromide (Celexa) 20 Mg Tablet, 1 Tab Oral Daily 12/14/08 Discontinued Citalopram Hydrobromide (Celexa) 20 Mg Tablet, 1 Tab Oral Daily 12/31/08 Discontinued Clonazepam (Klonopin) 1 Mg Tablet, 1 Mg Oral As Needed 12/31/08 Discontinued Ferrous Sulfate (Iron) 325 ( Tablet, 1 Tab Oral Daily 12/31/08 [place] [address] Gm (Flovent Hfa 110MCG) , 2 Puffs Inhalation Twice A Day Discontinued Lansoprazole (Prevacid) 30 Mg Capsule.dr, 1 Tab Oral Daily 12/31/08 Discontinued Multivitamins (Multivitamin) 1 Tab Tablet, 1 Tab Oral Daily 12/31/08 Discontinued Psyllium Seed (Metamucil) 1 Pkt Packet, Three Times A Day 12/31/08 Discontinued Quetiapine Fumarate (Seroquel Xr) 300 Mg Tab.sr.24h, 1 Tab Oral Daily Discontinued Trazodone Hcl 100 Mg Tablet, 2 Tab Oral Bedtime 12/31/08 Discontinued Ziprasidone Hcl (Geodon) 80 Mg Capsule, 1 Tab Oral Twice A Day 12/31/08 Discontinued Social History Social History Problem Response Recorded Date/Time Onset Date Status Reason for Hospitalization COLONOSCOPY 05/05/2016 10:14am Not Applicable Not Applicable Chewing Tobacco Status No 05/04/2016 11:49am Not Applicable Not Applicable Hx Substance Use Yes 05/05/2016 7:41am Not Applicable Not Applicable Hx Alcohol Use No 05/03/2016 9:30pm Not Applicable Not Applicable Has the pt used tobacco in the last 12 months No 05/04/2016 11:49am Not Applicable Not Applicable Tobacco Usage none 12/10/2013 6:58pm Not Applicable Not Applicable Query Response Start Date Stop Date Smoking Status Never smoker Hospital Discharge Instructions Instructions: Care Instructions: I was in the hospital because (patient own words): COLONOSCOPY Discharge Diet: As Tolerated Discharge Activity: Do NOT drive today Follow Up Appointments: Follow up with Dr. Saez as needed. Pending Lab / Results: Will be notified Patient Instructions: If biopsies performed during colonoscopy, results/recommendations will be mailed in about 2-3 weeks. If biopsies performed during EGD, results/recommendations will be mailed in about 1 week. Expected Signs/Symptoms: None Notify Physician If: Call physician if temperature is GREATER than 101.5, severe abdominal pain or severe rectal bleeding. During Business Hours:: Call [phone] After Business Hours:: Call [phone] (hospital) Pain Management/Treatment: Call Dr. Saez if increasing abdominal pain Wound/Incision Care: N/A Condition at time of discharge: Good Plan of Care Discharge Date 05/05/16 11:50am Instructions/Education Provided [facility] Prescriptions See Medication Section Functional Status Query Response Date Recorded Ability to complete ADL's impeded by No change May 05, 2016 7:45am Allergies, Adverse Reactions, Alerts Allergen Type Severity Reaction Status Last Updated Iodine Allergy Unknown Active 05/05/16 Clozapine Allergy Severe Active 05/05/16 Sertraline Allergy Intermediate DIARRHEA Active 05/05/16 Immunizations Query Response on File Recorded Date/Time Hx Influenza Vaccination Y JAN 2016 05/05/16 7:41am Hx Pneumococcal Vaccination Y Jan 2016 05/05/16 7:41am Hx Influenza Vaccination Y JAN 2016 05/05/16 7:41am Influenza Vaccine Hx JANUARY 2016 05/03/16 9:30pm Vital Signs Acute Vital Signs Vital Response Date/Time Temperature (Fahrenheit) 97.4 deg F (96.8 - 99.1) 05/05/2016 11:40am Temperature (Calculated Celsius) 36.85087 degrees C (36.0 - 37.3) 05/05/2016 11:40am Temperature Source Oral 05/05/2016 11:40am Pulse Rate (adult) 67 bpm (60 - 100) 05/05/2016 11:40am Respiratory Rate 16 breaths/min (10 - 20) 05/05/2016 11:40am O2 Sat by Pulse Oximetry 99 % (90 - 100) 05/05/2016 11:40am Oxygen Delivery Method Nasal Cannula 03/15/2016 5:22pm Oxygen Delivery Method Room Air 05/05/2016 11:40am Oxygen Flow Rate 1.00 L/min 03/15/2016 7:04am Blood Pressure 132/87 mm Hg 05/05/2016 11:40am Blood Pressure Source Automatic Cuff 05/05/2016 11:40am Height (Feet) 6 feet 05/05/2016 7:22am Height (Inches) 2.00 inches 05/05/2016 7:22am Weight (Kilograms) 122.000 kg 05/05/2016 7:22am Body Mass Index (BMI) 34.5 05/05/2016 7:22am Results Laboratory Results Test Name Result Units Flags Reference Collection Date/Time Result Date/ Time Comments D-Dimer < 150 NG/ML 0-230 03/14/2016 5:47pm 03/14/2016 5:59pm <230 NG/ ML D-DU=PRESUMPTIVE NEGATIVE FOR PE OR DVT >230 NG/ML D-DU=ADDITIONAL EVAL FOR PE OR DVT RECOMMENDED Cholesterol Level 154 MG/DL 132-199 03/15/2016 4:39am 03/16/2016 1: 58am Triglycerides Level 216 MG/DL H 40-160 03/15/2016 4:39am 03/16/2016 1: 58am HDL Cholesterol Direct 35 MG/DL L 40-60 03/15/2016 4:39am 03/16/2016 1: 58am LDL Cholesterol, Calculated 75.8 66-159 03/15/2016 4:39am 03/16/2016 1:58am VLDL Cholesterol 43.2 MG/DL H 0-28 03/15/2016 4:39am 03/16/2016 1:58am Cholesterol/HDL Ratio 4.4 RATIO 0-5.0 03/15/2016 4:39am 03/16/2016 1: 58am Magnesium Level 2.0 MG/DL 1.6-2.3 03/15/2016 4:39am 03/15/2016 5:24am Thyroid Stimulating Hormone (TSH) 2.95 MIU/L 0.47-4.68 03/15/2016 4: 39am 03/15/2016 5:51am Glucometer 160 mg/dL H 75-110 03/15/2016 2:47pm 03/15/2016 2:52pm Total Bilirubin 0.30 MG/DL 0.20-1.30 04/03/2016 3:0104/03/2016 3: 14am Alkaline Phosphatase 41 U/L 38-126 04/03/2016 3:0104/03/2016 3:14am Total Protein 5.8 G/DL L 6.3-8.2 04/03/2016 3:0104/03/2016 3:14am Albumin 3.1 G/DL L 3.5-5.0 04/03/2016 3:0104/03/2016 3:14am Globulin 2.7 G/DL 2.4-3.6 04/03/2016 3:0104/03/2016 3:14am Albumin/Globulin Ratio 1.1 RATIO 1.1-2.2 04/03/2016 3:0104/03/2016 3 :14am Aspartate Amino Transf (AST/SGOT) 20 U/L 17-59 04/03/2016 3:01am 2015 3:14am Alanine Aminotransferase (ALT/SGPT) 26 U/L 21-72 04/03/2016 3:01am 3:14am Plasma Lactate 1.9 MMOL/L 0.6-2.2 04/03/2016 3:01am 04/03/2016 3:13am Procalcitonin < 0.05 NG/ML 04/03/2016 1:57am 04/03/2016 3:17am PCT < /=0.5 ng/mL - sepsis not likely; PCT >0.5 and </=2 ng/mL - sepsis possible; PCT >2 ng/mL - sepsis likely; PCT >/=10 ng/mL - systemic inflammatory response - sepsis or septic shock highly indicated. White Blood Count 7.5 T/MM3 4.5-11.0 05/03/2016 9:15pm 05/03/2016 9: 20pm Red Blood Count 4.54 M/MM3 4.50-5.90 05/03/2016 9:1505/03/2016 9: 20pm Hemoglobin 13.3 GM/DL L 13.5-17.5 05/03/2016 9:1505/03/2016 9:20pm Hematocrit 41.6 % 41-53 05/03/2016 9:15pm 05/03/2016 9:20pm Mean Corpuscular Volume 91.6 UM3 80-100 05/03/2016 9:15pm 05/03/2016 9: 20pm Mean Corpuscular Hemoglobin 29.3 UUG 26-34 05/03/2016 9:152016 9:20pm Mean Corpuscular Hemoglobin Concent 32.0 GM/DL 31-37 05/03/2016 9:15pm 05/03/2016 9:20pm RDW Standard Deviation 46.3 FL 36.9-50.2 05/03/2016 9:15pm 05/03/2016 9 :20pm Platelet Count 169 T/MM3 130-400 05/03/2016 9:15pm 05/03/2016 9:20pm Mean Platelet Volume 11.5 UM3 9.4-12.4 05/03/2016 9:15pm 05/03/2016 9: 20pm Neutrophils (%) (Auto) 49.9 % 33-66 05/03/2016 9:15pm 05/03/2016 9: 20pm Lymphocytes (%) (Auto) 35.3 % 23-45 05/03/2016 9:15pm 05/03/2016 9: 20pm Monocytes (%) (Auto) 11.9 % H 0-9.0 05/03/2016 9:15pm 05/03/2016 9:20pm Eosinophils (%) (Auto) 2.7 % 0-4 05/03/2016 9:15pm 05/03/2016 9:20pm Basophils (%) (Auto) 0.1 % 0-2 05/03/2016 9:15pm 05/03/2016 9:20pm Immature Granulocyte % (Auto) 0.1 % 0.0-0.5 05/03/2016 9:15pm 2016 9:20pm Absolute Neutrophils (auto) 3.7 T/MM3 1.8-7.7 05/03/2016 9:15pm 2016 9:20pm Absolute Lymphocytes (auto) 2.6 T/MM3 1-4.8 05/03/2016 9:15pm 2016 9:20pm Absolute Monocytes (auto) 0.9 T/MM3 H 0-0.8 05/03/2016 9:15pm 2016 9:20pm Absolute Eosinophils (auto) 0.2 T/MM3 0-0.5 05/03/2016 9:15pm 2016 9:20pm Absolute Basophils (auto) 0.0 T/MM3 0-0.2 05/03/2016 9:15pm 05/03/2016 9:20pm Absolute Immature Granulocyte (auto 0.01 T/MM3 0.00-0.03 05/03/2016 9: 15pm 05/03/2016 9:20pm Prothromb Time International Ratio 1.01 0.76-1.04 05/03/2016 9:15pm 05/03/2016 9:27pm THERAPUTIC RANGE=2.00-3.00 FOR ANTI-THROMBOSIS THERAPUTIC RANGE=2.50-3.50 FOR IMPLANTED VALVE Icterus Index < 2 0-7 05/03/2016 9:15pm 05/03/2016 9:31pm Chemistry Specimen Hemolysis < 15 0-25 05/03/2016 9:05/03/2016 9 :31pm 0-25: Specimen Exhibited No Hemolysis. Turbidity < 20 0-20 05/03/2016 9:05/03/2016 9:31pm Sodium Level 142 MEQ/L 134-144 05/03/2016 9:05/03/2016 9:31pm Potassium Level 3.7 MEQ/L 3.6-5 05/03/2016 9:05/03/2016 9:31pm Chloride Level 102 MEQ/L 98-107 05/03/2016 9:05/03/2016 9:31pm Carbon Dioxide Level 29 MEQ/L 22-30 05/03/2016 9:05/03/2016 9: 31pm Anion Gap 11 MEQ/L 5-15 05/03/2016 9:05/03/2016 9:31pm Blood Urea Nitrogen 11.0 MG/DL 9-05/03/2016 9:05/03/2016 9: 31pm Creatinine 0.9 MG/DL 0.8-1.5 05/03/2016 9:05/03/2016 9:31pm BUN/Creatinine Ratio 12 RATIO 6-26 05/03/2016 9:05/03/2016 9:31pm Glomerular Filtration Rate Calc 88 05/03/2016 9:05/03/2016 9: 31pm Glucose Level 90 MG/DL 75-110 05/03/2016 9:05/03/2016 9:31pm Calculated Osmolality 272 MOSM/KG 261-280 05/03/2016 9:05/03/2016 9:31pm Calcium Level 9.2 MG/DL 8.4-10.2 05/03/2016 9:05/03/2016 9:31pm Troponin I < 0.012 ng/ml 0-0.12 05/03/2016 9:05/03/2016 9:43pm Troponin values with a difference of 55% increase from orginal troponin value represent a true biological DELTA value. (%increase Calc=Orginal Troponin value, divided by subsequent Troponin value, multiplied by 100) MA-Bvf-Q-Type Natriuretic Peptide 75 PG/ML 0-175 05/03/2016 9: 9:43pm Rule in cut points: <50 years old=450; 50-75 years old=900; >75 years old=1800; When utilizing ProBNP rule-in cut points, adjustment for impaired renal function is typically not required. Procedures Procedure Status Date Provider(s) Comprehen metabolic panel Completed 03/14/16 Assay of troponin quant Completed 03/14/16 Routine venipuncture Completed 03/14/16 Routine venipuncture Completed 03/14/16 Routine venipuncture Completed 03/14/16 Chest x-ray 1 view frontal Completed 03/14/16 Metabolic panel total ca Completed 03/14/16 Lipid panel Completed 03/14/16 Reagent strip/blood glucose Completed 03/14/16 Reagent strip/blood glucose Completed 03/14/16 Reagent strip/blood glucose Completed 03/14/16 Reagent strip/blood glucose Completed 03/14/16 Reagent strip/blood glucose Completed 03/14/16 Reagent strip/blood glucose Completed 03/14/16 Assay of magnesium Completed 03/14/16 Assay thyroid stim hormone Completed 03/14/16 Assay of troponin quant Completed 03/14/16 Assay of troponin quant Completed 03/14/16 Assay of troponin quant Completed 03/14/16 Complete cbc w/auto diff wbc Completed 03/14/16 Fibrin degradation quant Completed 03/14/16 Electrocardiogram tracing Completed 03/14/16 Tte w/doppler complete Completed 03/14/16 L hrt artery/ventricle angio Completed 03/14/16 CHICHI OEWN MD Airway inhalation treatment Completed 03/14/16 [id number] ITEM OR SERVICE Completed 03/14/16 [id number] ITEM OR SERVICE Completed 03/14/16 [id number] ITEM OR SERVICE Completed 03/14/16 [id number] ITEM OR SERVICE Completed 03/14/16 [id number] ITEM OR SERVICE Completed 03/14/16 [id number] ITEM OR SERVICE Completed 03/14/16 [id number] ITEM OR SERVICE Completed 03/14/16 [id number] ITEM OR SERVICE Completed 03/14/16 [id number] ITEM OR SERVICE Completed 03/14/16 [id number] ITEM OR SERVICE Completed 03/14/16 [id number] ITEM OR SERVICE Completed 03/14/16 [id number] THAN PEEL-AWAY Completed 03/14/16 [id number]"HOSPITAL OBSERVATION SERVICE, PER HOUR" Completed 11/29/16 [id number]"HOSPITAL OBSERVATION SERVICE, PER HOUR" Completed 03/14/[id number] ADMISSION OF PATIENT FOR HOSPITAL OBSERVATION C Completed "INJECTION, DIPHENHYDRAMINE HCL, UP TO 50 MG" Completed 03/14/16"INJECTION, HEPARIN SODIUM, PER 1000 UNITS" Completed 03/14/16"INJECTION, HEPARIN SODIUM, PER 1000 UNITS" Completed 03/14/16"INJECTION, ENOXAPARIN SODIUM, 10 MG" Completed 03/14/16"INJECTION, ENOXAPARIN SODIUM, 10 MG" Completed 03/14/16"INJECTION, MIDAZOLAM HYDROCHLORIDE, PER 1 MG" Completed 03/14/16"INJECTION, METHYLPREDNISOLONE SODIUM SUCCINATE, UP TO Completed "INJECTION, FENTANYL CITRATE, 0.1 MG" Completed 03/14/[id number] DRUGS Completed 03/14/16"INFUSION, NORMAL SALINE SOLUTION , 1000 CC" Completed 03/14/16"LOW OSMOLAR CONTRAST MATERIAL, 300-399 MG/ML IODINE C Completed "LOW OSMOLAR CONTRAST MATERIAL, 300-399 MG/ML IODINE C Completed Routine venipuncture Completed 04/03/16 Chest x-ray 1 view frontal Completed 04/03/16 Comprehen metabolic panel Completed 04/03/16 Assay of lactic acid Completed 04/03/16 Procalcitonin (pct) Completed 04/03/16 Assay of troponin quant Completed 04/03/16 Complete cbc w/auto diff wbc Completed 04/03/16 Electrocardiogram tracing Completed 04/03/16 Hydrate iv infusion add-on Completed 04/03/16 Ther/proph/diag inj iv push Completed 04/03/16 Tx/pro/dx inj new drug addon Completed 04/03/16 Emergency dept visit Completed 04/03/16"INJECTION, KETOROLAC TROMETHAMINE, PER 15 MG" Completed 04/03/16"INJECTION, LORAZEPAM, 2 MG" Completed 04/03/16"INFUSION, NORMAL SALINE SOLUTION , 1000 CC" Completed 04/03/16"INFUSION, NORMAL SALINE SOLUTION , 1000 CC" Completed 04/03/16 Colonoscopy with polypectomy and biopsy Completed 05/05/16 KATYA SAEZ MD, FACS, CWS Encounters Encounter Location Arrival/Admit Date Discharge/Depart Date Attending Provider Departed [facility] 05/05/16 7:05am 05/05/16 11 :50am KATYA SAEZ FACS, MD Departed Emergency Room [facility] 05/03/16 8:38pm 05/03/16 10: 40pm AUGUSTSONJA DO Departed Emergency Room [facility] 04/03/16 1:49am 04/03/16 4: 14am GILMAR ESPINO MD Departed [facility] 03/14/16 3:42pm 03/15/16 7: 00pm KRISTA PALOMINO MD Registered Clinic [facility] 03/14/16 2:32pm DANIEL SWEENEY MD Registered [facility] 03/03/16 8:00am KATYA SAEZ FACS, MD
--- OUTSIDE RECORDS SUMMARY | 2016-07-10 08:55 | XMS REPORT | Continuity of Care Document ---
Author Author [facility] Organization [facility] Address Unknown Phone Unavailable Support Name Relationship Address Phone SHYANNE VAUGHAN MD Caregiver [address] [phone] MALACHI CHOWDARY MD Caregiver [address] [phone] ABDOULAYE ZAMORANO Next Of Kin [address] [place] [address] Insurance Providers Payer Name Policy Number Subscriber Name Relationship Medicare [id number] Yvonne Curry 20 Self Medicaid [id number] Yvonne Curry Self Advance Directives Directive Response Recorded Date/Time Advanced Directives Type None 05/30/14 4:51pm Problems Medical Problems Problem Onset Date Status Bipolar disorder Unknown Active Schizoaffective disorder Unknown Active suicidal ideation with attempt Unknown Active Diarrhea Unknown Active Diarrhea Unknown Active Medications Medication Dose Route Sig [...] Tab PO BEDTIME 12/31/08 Active [Flovent Hfa 92916 Gm] 2 Puffs IH TWICE A DAY [...] Fumarate 400 Mg PO DAILY 05/27/12 Active Omeprazole 20 Mg PO DAILY 05/27/12 Active Lovastatin 40 Mg PO BEDTIME Take one tablet, by mouth, one time a day ( at bedtime). 12/10/13 Active Social History Social History Problem Response Recorded Date/Time Hx Substance Use Yes 05/30/2014 6:05pm Hx Alcohol Use No 05/30/2014 6:05pm Tobacco Usage none 12/10/2013 6:58pm Query Response Start Date Stop Date Smoking Status Never smoker Hospital Discharge Instructions No hospital discharge instructions. Plan of Care No plan of care. Functional Status Query Response Date Recorded Physical Hygiene Self May 30, 2014 6:05pm Disabilities None May 30, 2014 6:05pm Devices Used Glasses May 30, 2014 6:05pm Dressing Self May 30, 2014 6:05pm Ambulation Self May 30, 2014 6:05pm Diet Self May 30, 2014 6:05pm Mental Status Alert May 30, 2014 6:48pm Disabilities None May 30, 2014 6:05pm Devices Used Glasses May 30, 2014 6:05pm Physical Hygiene Self May 30, 2014 6:05pm Dressing Self May 30, 2014 6:05pm Ambulation Self May 30, 2014 6:05pm Diet Self May 30, 2014 6:05pm Allergies, Adverse Reactions, Alerts Allergen Type Severity Reaction Status Last Updated Iodine Allergy Unknown Active 05/27/13 Clozapine Allergy Severe Active 05/27/13 Immunizations Name Given Type Hx Influenza Vaccination Y FALL 2013 Historical Hx Pneumococcal Vaccination Y UNSURE Historical Hx Influenza Vaccination Y FALL 2013 Historical Vital Signs Acute Vital Signs Vital Response Date/Time Temperature (Fahrenheit) 96.6 deg F (96.8 - 99.1) Temperature (Calculated Celsius) 35.12080 degrees C (36.0 - 37.3) Pulse Rate (adult) 100 bpm (60 - 100) Respiratory Rate 20 breaths/min (10 - 20) O2 Sat by Pulse Oximetry 98 % (90 - 100) Blood Pressure 154/85 mm Hg Height 6 ft 2 in Weight 284 lb Body Mass Index 36.0 kg/m^2 Results Test Source Date Result Interp. Ref. Range Comments Acetaminophen Level December 10, 2013 4:44pm < 10 UG/ML L 10-30 TOXIC <4 HR POST INGESTION: >150 MG/L;TOXIC <12 HR POST INGESTION: >50 MG/L Activated Partial Thromboplast Time March 08, 2012 11:45pm 30.5 SEC N 24-36 Alanine Aminotransferase (ALT/SGPT) May 30, 2014 5:50pm 21 U/L N 21 -72 Albumin May 30, 2014 5:50pm 4.0 G/DL N 3.5-5.0 Albumin/Globulin Ratio May 30, 2014 5:50pm 1.3 RATIO N 1.1-2.2 Alcohol, Quantitative December 10, 2013 4:44pm <10 MG/DL - Alkaline Phosphatase May 30, 2014 5:50pm 75 U/L N 38-126 Anion Gap May 30, 2014 5:50pm 13 MEQ/L N 5-15 Aspartate Amino Transf (AST/SGOT) May 30, 2014 5:50pm 19 U/L N 17- 59 BUN/Creatinine Ratio May 30, 2014 5:50pm 12 RATIO N 6-26 Basophils # (Auto) May 30, 2014 5:50pm 0.0 T/MM3 N 0-0.2 Basophils (%) (Auto) May 30, 2014 5:50pm 0.1 % N 0-2 Blood Urea Nitrogen May 30, 2014 5:50pm 11.0 MG/DL N 9-20 C. difficile Toxin B Gene (PCR) May 30, 2014 5:48pm Negative - If Toxin A is clinically indicated, treat accordingly. Calcium Level May 30, 2014 5:50pm 9.1 MG/DL N 8.4-10.2 Calculated Osmolality May 30, 2014 5:50pm 279 MOSM/KG N 261-280 Carbon Dioxide Level May 30, 2014 5:50pm 29 MEQ/L N 22-30 Chemistry Specimen Hemolysis May 30, 2014 5:50pm < 15 0-25 0-25 : No Hemolysis.26-70: Slight Hemolysis - can falsely elevate K and Urine Protein. 71-285: Moderate Hemolysis - can falsely elevate K, Troponin I, CA 19-9, PTH, CSF GLucose, and Urine Protein, and can falsely decrease Phenytoin. 286-999: Gross Hemolysis - can falsely elevate K, Troponin I, CA 19-9, PTH, CSF Glucose, and Urine Protine, and can falsely decrease Phenytoin. Recommend specimen recollection. Chloride Level May 30, 2014 5:50pm 104 MEQ/L N 98-107 Clostridium difficile [id number] May 30, 2014 5:48pm Has specimen been collected/obtained? Y - Conjugated Bilirubin July 18, 2012 3:27pm 0.00 MG/DL N 0.00-0.30 Creatinine May 30, 2014 5:50pm 0.9 MG/DL N 0.8-1.5 D-Dimer August 18, 2013 4:47pm 214 NG/ML N 0-230 <224 NG/ML=PRESUMPTIVE NEGATIVE FOR PE OR DVT>224 NG/ML=ADDITIONAL EVALUATION FOR PE OR DVT RECOMMENDED EKG December 31, 2008 7:09pm Complete - Eosinophils # (Auto) May 30, 2014 5:50pm 0.3 T/MM3 N 0-0.5 Eosinophils (%) (Auto) May 30, 2014 5:50pm 4.1 % H 0-4 Free Thyroxine December 10, 2013 4:44pm 0.75 NG/DL L 0.78-2.19 Globulin May 30, 2014 5:50pm 3.2 G/DL N 2.4-3.6 Glomerular Filtration Rate Calc May 30, 2014 5:50pm 89 - Glucose Level May 30, 2014 5:50pm 77 MG/DL N 75-110 Hematocrit May 30, 2014 5:50pm 37.6 % L 41-53 Hemoglobin May 30, 2014 5:50pm 12.1 GM/DL L 13.5-17.5 Icterus Index May 30, 2014 5:50pm < 2 0-7 Immature Granulocyte # (Auto) May 30, 2014 5:50pm 0.02 T/MM3 N 0.00 -0.03 Immature Granulocyte % (Auto) May 30, 2014 5:50pm 0.3 % N 0.0-0.5 Lab Scanned Report December 10, 2013 7:42pm REFERENCE LAB [id number] - Lymphocytes # (Auto) May 30, 2014 5:50pm 2.8 T/MM3 N 1-4.8 Lymphocytes (%) (Auto) May 30, 2014 5:50pm 38.6 % N 23-45 Mean Corpuscular Hemoglobin May 30, 2014 5:50pm 29.0 UUG N 26-34 Mean Corpuscular Hemoglobin Concent May 30, 2014 5:50pm 32.2 GM/DL N 31-37 Mean Corpuscular Volume May 30, 2014 5:50pm 90.2 UM3 N 80-100 Mean Platelet Volume May 30, 2014 5:50pm 11.2 UM3 N 9.4-12.4 Monocytes # (Auto) May 30, 2014 5:50pm 0.8 T/MM3 N 0-0.8 Monocytes (%) (Auto) May 30, 2014 5:50pm 10.9 % H 0-9.0 CV-Qfo-O-Type Natriuretic Peptide March 08, 2012 11:45pm 67 PG/ML N 0 -175 Rule in cut points: <50 years old=450; 50-75 years old=900; >75 years old=1800; When utilizing ProBNP rule-in cut points, adjustment for impaired renal function is typically not required. Neutrophils # (Auto) May 30, 2014 5:50pm 3.4 T/MM3 N 1.8-7.7 Neutrophils (%) (Auto) May 30, 2014 5:50pm 46.0 % N 33-66 Platelet Count May 30, 2014 5:50pm 175 T/MM3 N 130-400 Potassium Level May 30, 2014 5:50pm 4.7 MEQ/L N 3.6-5 Prothromb Time International Ratio March 08, 2012 11:45pm 0.95 N 0.86 -1.10 THERAPUTIC RANGE=2.00-3.00 FOR ANTI-THROMBOSIS THERAPUTIC RANGE=2.50- 3.50 FOR IMPLANTED VALVE RDW Standard Deviation May 30, 2014 5:50pm 45.1 FL N 36.9-50.2 Red Blood Count May 30, 2014 5:50pm 4.17 M/MM3 L 4.50-5.90 Salicylates Level December 10, 2013 4:44pm < 1.0 MG/DL L 2-20 Sodium Level May 30, 2014 5:50pm 146 MEQ/L H 134-144 Tests Not Done December 14, 2008 5:04pm Not done - Has specimen been collected/obtained? Y Thyroid Stimulating Hormone (TSH) December 10, 2013 4:44pm 4.76 MIU/L H 0.47-4.68 Total Bilirubin May 30, 2014 5:50pm 0.20 MG/DL N 0.20-1.30 Total Protein May 30, 2014 5:50pm 7.2 G/DL N 6.3-8.2 Troponin I March 08, 2012 11:45pm < 0.012 ng/ml 0-0.12 Turbidity May 30, 2014 5:50pm < 20 0-20 Unconjugated Bilirubin July 18, 2012 3:27pm 0.00 MG/DL N 0.00-1.10 Urinalysis Comment December 10, 2013 5:50pm Microscopic not ind. - Has specimen been collected/obtained? Y Urine Bilirubin December 10, 2013 5:50pm Negative [...] Has specimen been collected/obtained? Y Urine Specific [place] December 10, 2013 5:50pm <=1.005 L - [...] UG/ML N 50- 120 White Blood Count May 30, 2014 5:50pm 7.4 T/MM3 N 4.5-11.0 Shiga Toxin I & II Stool May 30, 2014 5:48pm Procedures No known history of procedures. Encounters Encounter Location Date/Time Departed Emergency Room [facility] 05/30/14 3:03pm Recent Diagnosis
[2016-07-10 09:35] LABS: BASOPHILS % (AUTO) 0.3 % (0-2); EOSINOPHILS # (AUTO) 0.2 T/MM3 (0-0.5); EOSINOPHILS % (AUTO) 1.9 % (0-4); HGB - HEMOGLOBIN 14.1 GM/DL (13.5-17.5); IMMATURE GRANULOCYTE # (AUTO) 0.01 T/MM3 (0.00-0.03); IMMATURE GRANULOCYTE % (AUTO) 0.1 % (0.0-0.5); LYMPHOCYTES # (AUTO) 2.2 T/MM3 (1-4.8); LYMPHOCYTES % (AUTO) 27.9 % (23-45); MEAN CORPUSCULAR HGB 29.3 UUG (26-34); MEAN CORPUSCULAR HGB CONC(MCHC 32.8 GM/DL (31-37); MEAN CORPUSCULAR VOLUME 89.4 UM3 (80-100); MONOCYTES # (AUTO) 0.9 T/MM3 (0-0.8); MONOCYTES % (AUTO) 11.9 % (0-9.0); NEUTROPHILS #(AUTO)-ABSOLUTE 4.5 T/MM3 (1.8-7.7); NEUTROPHILS % (AUTO) 57.9 % (33-66); RED BLOOD COUNT 4.81 M/MM3 (4.50-5.90); WBC - WHITE BLOOD COUNT 7.8 T/MM3 (4.5-11.0)
[2016-07-10 09:46] LABS: ALBUMIN 4.1 G/DL (3.5-5.0); ALBUMIN/GLOBULIN RATIO 1.1 RATIO (1.1-2.2); ALKALINE PHOSPHATASE 80 U/L (38-126); ALT (SGPT) 30 U/L (21-72); ANION GAP 14 MEQ/L (5-15); AST (SGOT) 21 U/L (17-59); BUN/CREATININE RATIO 11 RATIO (6-26); CALCIUM 9.3 MG/DL (8.4-10.2); CHLORIDE 99 MEQ/L (98-107); CO2 - CARBON DIOXIDE 29 MEQ/L (22-30); CREATININE 1.1 MG/DL (0.8-1.5); GLOMERULAR FILTRATION RATE 70; GLUCOSE 97 MG/DL (75-110); POTASSIUM 4.1 MEQ/L (3.6-5); SODIUM 142 MEQ/L (134-144); TOTAL PROTEIN 7.7 G/DL (6.3-8.2)
--- NOTE | 2016-07-10 10:10 | ANESPREOP ---
Anesthesia Record Date and Time DATE: 07/10/16 TIME: 10:06 Pre-Op Diagnosis Rectal Adenoma Proposed Surgical Procedure ROBOTIC LAP LOW ANTERIOR RESECTION Allergies: Coded Allergies: clozapine (Verified Allergy, Severe, 05/05/16) sertraline (Verified Allergy, Intermediate, DIARRHEA, 05/05/16) iodine (Verified Allergy, Unknown, 05/05/16) Ht/Wt/BMI Height: 6 ' 2.00 " Weight: 116.300 kg BMI: 32.9 kg/m2 Vital Signs Date Time Temp Pulse Resp B/P Pulse Ox O2 Delivery O2 Flow Rate FiO2 07/10/16 09:10 97.8 71 15 124/73 95 Room Air Medications Inpatient Medications Current Medications Medications (Trade) Dose Ordered Sig/Corky Start Time Stop Time Status Last Admin Dose Admin Lactated Ringer's (Lactated Ringers) 1,000 ml @ 30 mls/hr Q24H 07/10/16 07:00 07/10/16 10:04 30 MLS/HR Aspirin (Aspirin) 81 Mg Tab.chew, 81 MG PO DAILY, (Reported) Last Taken: on 07/02/16 Buspirone HCl (Buspirone HCl) 15 Mg Tablet, 15 MG PO BID, (Reported) Last Taken: on 07/10/16 0700 Carvedilol (Carvedilol) 3.125 Mg Tablet, 3.125 MG PO BID, (Reported) Last Taken: on 07/10/16 0700 Divalproex Sodium (Depakote Er) 500 Mg Tab.sr.24h, 1,000 MG PO HS, (Reported) Last Taken: on 07/09/162099 Fluticasone Propionate (Flovent HFA 110mcg) 120 Puff/12 G Inhaler, 2 PUFF INH BID, (Reported) Last Taken: on Unknown Date & Time Hydroxyzine Pamoate (Hydroxyzine Pamoate ) 25 Mg Capsule, 1 CAP PO BID, (Reported) Last Taken: on 07/09/162099 Levalbuterol Tartrate (Xopenex Hfa) 15 Gm Hfa.aer.ad, 1 PUFF INH Q4H PRN for PRN ORDERS, (Reported) Last Taken: on 07/10/16 0600 Lisinopril (Lisinopril) 20 Mg Tablet, 20 MG PO HS, (Reported) Last Taken: on 3/26/17 2100 Omeprazole (Prilosec) 20 Mg Tablet.dr, 20 MG PO BID, (Reported) Last Taken: on 07/10/16 0700 Quetiapine Fumarate (Quetiapine Fumarate) 25 Mg Tablet, 25 MG PO DAILY PRN for ANXIETY, (Reported) Last Taken: on 07/06/16 Quetiapine Fumarate (Seroquel Xr) 200 Mg Tablet, 200 MG PO WS, (Reported) Last Taken: on 07/09/16 183 Quetiapine Fumarate (Seroquel Xr) 300 Mg Tablet , 300 MG PO WS, (Reported) Last Taken: on 07/09/161829 Risperidone Microspheres (Risperdal Consta) 50 Mg/2 Ml/Syr Syringe, 50 MG IM Q2WK, (Reported) Last Taken: on 06/26/16 Rosuvastatin Calcium (Crestor) 20 Mg Tablet, 20 MG PO HS, (Reported) Last Taken: on 07/09/16 2100 Currently on Beta Kailee: No Medical/Surgical History Anesthesia PMH: Reports: *Angina (APR 2016), *Diabetes (TYPE II PER H&P), * Hypertension (PER H&P), *OK (PER PAST ADMIT), Asthma (USES INHALERS PER H&P), Cancer (colonoscopy), Pneumonia (HX. PER H&P), Reflux (PER H&P), Seizures (1997) , Denies: Anesthesia Reactions, Arthritis, CHF, COPD, CVA/Stroke/TIA, Cardiac Arrythmia, Glaucoma, Headaches, Hepatitis, Hiatal Hernia, Malignant Hyperthermia , Pacemaker, Renal Disease, Sleep Apnea, Thyroid Disease, Tuberculosis Smoking Status: Never smoker Use Chewing Tobacco?: No Second Hand Exposure: No Substance Use Type: does not use Alcohol Intake: none Past Surgical History Orthopedic Surgeries: No Abdominal Surgeries: No Genitourinary Surgeries: No Cardiac Surgeries: Yes - HEART CATH Endocrine Surgeries: No Reproductive Surgeries: No Neurological Surgeries: No Ear Surgeries: No Nose Surgeries: No Throat Surgeries: No Other Surgeries: Yes - COLONOSCOPY PER H&P Anesthesia Adverse Reactions: FOUND none Family Hx of Anesthesia Advers: none Hx of Motion Sickness: No Pertinent Findings Laboratory Tests 07/10/16 09:17 EKG Rhythm: Sinus Rhythm Physical Exam Respiratory: Lungs clear Cardiovascular: FOUND Regular rate, rhythm, FOUND No murmur Airway Assessment Mallampati Score: I TMD: 3 Fingerbreadths Neck Extension: Good Overall Assessment: No Airway Concerns ASA: 2 Plan Anesthesia Plan: GETA Discussion Discussed risks/options/alternatives of anesthesia and questions answered. Patient consents. Nursing pain assessment noted. Attestation Statement Prior to the delivery of any anesthetic medication, I examined the patient, developed the plan, obtained the patient's consent and discussed the risk and benefits of the procedure with the patient/guardian. GRADY XIAO CRNA Jul 10, 2016 10:09
[2016-07-10] MEDS ORDERED: BUPIVACAINE 0.25%/EPI 1:200,000 30ml SDV ONE (10:20)
[2016-07-10] MEDS ORDERED: ROCURONIUM 50mg/5ml INJECTION IV ONE ×2 (10:25→12:28)
[2016-07-10] MEDS ORDERED: PROPOFOL 200mg 20 ML IV ONE (10:25)
[2016-07-10] MEDS ORDERED: SUFENTANIL 50 MCG/ML VIAL ONE (10:26)
[2016-07-10] MEDS ORDERED: SALINE FLUSH 10ml SYRINGE ONE ×5 (10:28→15:39)
[2016-07-10] MEDS ORDERED: LIDOCAINE (2%) 100 MG/5 ML PF SYRINGE IV ONE (10:43)
[2016-07-10] MEDS ORDERED: LIDOCAINE JELLY 2% 30ml TUBE ONE (10:44)
[2016-07-10] MEDS ORDERED: DEXAMETHASONE 4mg/ml - 1ml INJECTION ONE (11:27)
[2016-07-10] MEDS ORDERED: LACRI-LUBE EYE OINT 3.5 G TUBE ONE (11:37)
[2016-07-10] MEDS ORDERED: PHENYLEPHRINE 10mg/ml INJECTION ONE (11:40)
[2016-07-10] MEDS ORDERED: EPHEDRINE SULFATE 50mg/ml INJECTION ONE (11:50)
[2016-07-10] MEDS ORDERED: VASOPRESSIN 20 UNIT/ML ONE (11:53)
[2016-07-10] MEDS ORDERED: ONDANSETRON 4mg/2ml INJECTION IV PRN ×3 (12:30→18:00)
[2016-07-10] MEDS ORDERED: FAMOTIDINE 20 MG in NORMAL SALINE 50 ML IV ONE (13:45)
[2016-07-10] MEDS ORDERED: DiphenhydrAMINE 50 MG/ML INJECTION ONE (14:00)
[2016-07-10] MEDS ORDERED: SEVOFLURANE 250 ML LIQUID IH ONE (14:04)
[2016-07-10] MEDS ORDERED: KETAMINE 500mg/10ml INJECTION ONE (15:22)
[2016-07-10] MEDS ORDERED: SUGAMMADEX 200 MG/2 ML INJECTION IV ONE ×2 (16:51→17:08)
[2016-07-10] MEDS: D5-1/2 NS KCL 20 MEQ 1,000 ML IV SCH (17:03)
[2016-07-10] MEDS ORDERED: NORMAL SALINE 1,000 ML IV ONE (17:03)
[2016-07-10] MEDS ORDERED: HYDROMORPHONE PCA 30 MG/30 ML VIAL IV PRN (17:15)
[2016-07-10] MEDS ORDERED: MORPHINE SULFATE 4 MG SYRINGE IV PRN (17:15)
[2016-07-10] MEDS ORDERED: QUETIAPINE 25 MG TABLET PO PRN (17:15)
--- NOTE | 2016-07-10 17:23 | GSPOSTPN ---
Procedure Procedure Date: Jul 10, 2016 Surgeon: Melida Assisting Surgeon: Chin Solano Anesthesia: Local, GETA ASA: 2 Procedure Robotic assisted laparoscopic sigmoid resection, with primary anastomosis, intraoperative flexible sigmoidoscopy GS Diagnosis Postop Diagnosis Adenomatous polyp at rectosigmoid junction, unable to be removed endoscopically , await final pathology Complications Complications Estimated Blood Loss See Anesthesia Record. Vital Signs See Anesthesia and PACU record. MAURISIO SOLANO APRN, CWS Jul 10, 2016 17:23
[2016-07-10] MEDS ORDERED: INHALER ASSIST DEVICE MEDIUM MASK (AEROCHAMBER) MC ONE ×2 (17:35)
[2016-07-10] MEDS ORDERED: HYDROMORPHONE 2mg/ml INJECTION IV PRN (17:45)
--- NOTE | 2016-07-10 18:00 | NUR ---
Report: is received from the PACU staff. O2 sat is noted to be 78% on room air. O2 is placed on at 3l/nc along with ETCO@ monitoring. The art line is zeroed and a good waveform is noted. It flushes easily. IV LR is infusing in the right hand.
--- NOTE | 2016-07-10 18:15 | NUR ---
IV/MULTIMEDIA PROGRAMMER: The IV fluids are changed to NS at 125 ml/hr. MULTIMEDIA PROGRAMMER dilaudid is started per orders. Settings are checked by this RN and Phuong RN.
--- NOTE | 2016-07-10 18:30 | NUR ---
RR: is 10 breaths per min. Staff remains at the bedside to monitor the patient respirations.
--- NOTE | 2016-07-10 19:15 | NUR ---
Report: is given to Mary MAHONEY at the bedside. The patient is awake and oriented to person and place. He is instructed on use of the photography and prints curator machine.
[2016-07-10] MEDS: QUETIAPINE 200 MG PO SCH (19:23)
[2016-07-10] MEDS: CARVEDILOL 3.125 MG TABLET PO SCH (19:23)
[2016-07-10] MEDS: QUETIAPINE 300 MG PO SCH (19:24)
--- NOTE | 2016-07-10 19:30 | NUR ---
Status Pt awake and able to answer questions appropriately. Administered Coreg and Seroquel. Pt swallowing intact. Hypertensive 160's systolic. Laproscopic sites c/d/i.
[2016-07-10] MEDS: FLUTICASONE HFA 110 MCG INHALER ORAL INH SCH (20:35)
[2016-07-10] MEDS: KETOROLAC 30mg/ml INJECTION IV PRN (20:55)
[2016-07-10] MEDS: LISINOPRIL 20 MG TABLET PO SCH (20:59)
[2016-07-10] MEDS: ROSUVASTATIN 20 MG TABLET PO SCH (21:00)
[2016-07-10] MEDS: DIVALPROEX ER 500 MG TABLET PO SCH (21:00)
--- NOTE | 2016-07-10 22:22 | OPNOTEF ---
DATE OF SERVICE 07/10/2016 PREOPERATIVE DIAGNOSIS Unresectable rectal polyps. POSTOPERATIVE DIAGNOSIS Unresectable rectal polyps. PROCEDURE Cystoscopy. Insertion of bilateral lighted ureteral catheters. SURGEON Sukumar Silverman MD ANESTHESIA General. COMPLICATIONS None. DRAINS Bilateral lighted ureteral catheters, 16-Fr Oropeza catheter. INDICATIONS 56-year-old gentleman. Dr. Montez found unresectable colon polyps in his rectum and he is brought for low anterior resection. Dr. Montez asked that I place lighted ureteral stents for his surgery. NARRATIVE OF PROCEDURE After informed consent was obtained the patient was brought to the operating room and general anesthesia was induced. He was placed in lithotomy position, prepped and draped in the usual fashion. A 22-Fr rigid cystoscope per urethra. The * * bulbomembranous urethra unremarkable. The prostate showed some lateral hyperplasia. The bladder showed some mild trabeculation. There were no stones, tumors or foreign bodies. I passed a Sensor wire through the cystoscope and up the right ureter. Over this I passed the ureteral catheter which was a [place] brand device. I then offloaded the cystoscope from the ureteral catheter. I repassed the cystoscope. I cannulated the left ureteral orifice with the Sensor wire which I advanced by feel. I then advanced the other ureteral catheter. Both of these were set to 20 cm as instructed. The cystoscope was removed. A 16-Fr Oropeza catheter was inserted and set to gravity drainage. I secured the ureteral catheters to the Oropeza with a 2-0 silk tie. I then connected the ports and passed the fiberoptic lights through the ureteral catheters. The procedure was then turned over to Dr. Montez for his robotic low anterior resection. Ureteral catheters and Oropeza catheter may be removed when they are no longer needed. MTDD
[2016-07-11] VITALS (57 sets, daily range): BP systolic 85–122; BP diastolic 49–68; PULSE 72–102; RESP 9–24; TEMP 96.9–98.7; O2SAT 90–99
--- NOTE | 2016-07-11 01:56 | NUR ---
ART line Accuracy of arterial line questionable. RNx3 reerico'd system several times. Continues to reflect systolic in the 70-80's. BP taken via cuff on lower arm and upper arm reflects higher in the upper 90's. Sluggish blood return from art line whereas previously was brisk return. Addendum: 07/11/16 at 0229 by SRIDHAR BARNEY RN Surgical Pathologist at bedside with this RN to assess art line/troubleshoot. No blood return observed from art line. BPs continue to reflect low - approx. 20 points lower than cuff reading.
[2016-07-11] MEDS: D5-1/2 NS KCL 20 MEQ 1,000 ML IV SCH ×3 (02:30→20:19)
--- NOTE | 2016-07-11 05:28 | NUR ---
Shift Summary Pt has slept well off and on during the night. Awakes easily for cares. A&Ox3 and appropriate. Positions self in bed. C/o some abdominal pain. Dilaudid MOSHGIACH in use. RN also administered PRN Toradol in an attempt to use less Dilaudid due to low respiratory rate. Dressings to abdomen c/d/i, except for a very small spot of blood on bandaid to middle lap incision. VSS. BP marginal at times - MAP remaining >65, however did hang out between 65-75 for majority of night. Urine output adequate via ardon - was nieto and has improved as night progressed. Art line began having problems around midnight, unable to aspirate blood. Suspected that is has clotted off. Several RNs at bedside troubleshooting without improvement. CARI Cast, paged this morning. Pending callback. Addendum: 07/11/16 at 0626 by SRIDHAR BARNEY RN Updated Chin on pt status, including: BP, urine output, arterial line. New orders received for 1L NS IVFB over 2 hrs, Hgb at 1000.
[2016-07-11 05:44] LABS: ANION GAP 8 MEQ/L (5-15); BUN/CREATININE RATIO 17 RATIO (6-26); CHLORIDE 103 MEQ/L (98-107); CO2 - CARBON DIOXIDE 28 MEQ/L (22-30); GLOMERULAR FILTRATION RATE 78; GLUCOSE 170 MG/DL (75-110); POTASSIUM 4.8 MEQ/L (3.6-5); SODIUM 139 MEQ/L (134-144)
[2016-07-11 05:54] LABS: HGB - HEMOGLOBIN 11.4 GM/DL (13.5-17.5); IMMATURE GRANULOCYTE # (AUTO) 0.02 T/MM3 (0.00-0.03); IMMATURE GRANULOCYTE % (AUTO) 0.2 % (0.0-0.5); LYMPHOCYTES # (AUTO) 0.9 T/MM3 (1-4.8); MEAN CORPUSCULAR HGB 29.3 UUG (26-34); MEAN CORPUSCULAR HGB CONC(MCHC 32.6 GM/DL (31-37); MEAN PLATELET VOLUME 11.4 UM3 (9.4-12.4); MONOCYTES # (AUTO) 1.1 T/MM3 (0-0.8); MONOCYTES % (AUTO) 11.6 % (0-9.0); NEUTROPHILS #(AUTO)-ABSOLUTE 7.2 T/MM3 (1.8-7.7); NEUTROPHILS % (AUTO) 78.2 % (33-66); RED BLOOD COUNT 3.89 M/MM3 (4.50-5.90); WBC - WHITE BLOOD COUNT 9.2 T/MM3 (4.5-11.0)
[2016-07-11] MEDS ORDERED: NORMAL SALINE 1,000 ML IV ONE (06:30)
--- NOTE | 2016-07-11 08:35 | OPNOTEF ---
DATE OF OPERATION 07/10/[address] BOSS Margoth Solano, MAILE PREOPERATIVE DIAGNOSIS Tubulovillous adenoma involving rectum, unable to be removed in its entirety endoscopically. POSTOPERATIVE DIAGNOSIS Tubulovillous adenoma involving rectum, unable to be removed in its entirety endoscopically. PROCEDURE Robotic-assisted laparoscopic low anterior resection. ANESTHESIA General endotracheal. EBL AND FLUIDS Please see chart. BRIEF HISTORY/INDICATIONS Mr. Tomas is a 55-year-old gentleman who recently underwent a colonoscopy and was found have a large sessile polyp at 9 cm from the anal verge. This polyp extended from about 9 cm up to 15 cm from the anal verge. The polyp occupied perhaps 60% of the circumference of the rectosigmoid junction. The polyp was not amenable to endoscopic resection. The polyp was biopsied and returned as that of a tubulovillous adenoma. As a result of above indications, it was recommended to the patient that he undergo surgical intervention. Patient presents today to undergo surgical resection of this large adenomatous rectal polyp. For completeness, please refer to notes included in the patient's chart. DESCRIPTION OF PROCEDURE After informed consent was obtained, the patient was brought to the operative suite, placed on the table in a supine fashion. Urology did place bilateral ureteral stents which would fluorescence and were lighted to facilitate the dissection. This portion of the procedure will be dictated by urology. Once urology had completed this portion of the procedure, the patient's abdomen and perianal region was prepped and draped in sterile fashion. The patient was upon the table in a lithotomy position. Formal time-out was then completed. Next 0.25% Marcaine with epinephrine was injected just beneath the left subcostal margin. A 4-5 mm incision was made through the area of analgesia. A Veress needle was then introduced through the small incision and advanced into the peritoneal cavity. Pneumoperitoneum was then created to a patient pressure of 15 mmHg utilizing carbon dioxide. Next, additional 0.25% Marcaine with epinephrine was injected just cephalad to the umbilicus and 2-3 cm to the right of the umbilicus. A 2 cm incision was made overlying the area of analgesia. A 12-mm camera port was then placed through this incision into the peritoneal cavity. A laparoscope was then inserted into the camera port and one could see the Veress needle as it coursed into the abdomen within the left upper quadrant. Veress needle was removed under direct visualization. Next the da Ijeoma stapler port was placed 2-3 cm medial to the right anterior iliac spine. This area was preinjected with 0.25% Marcaine with epinephrine and placed under direct visualization. Next, two additional 8 mm ports were then placed within the left upper quadrant and left lateral abdominal wall. Again, each port site was preinjected with 0.25% Marcaine with epinephrine and placed under direct visualization. Lastly, an 8 mm AirSeal port was then placed within the epigastric region, again under direct visualization. The patient was then placed in Trendelenburg position and slightly rotated towards his right. Small bowel was then gently swept away from the pelvis. One could see the patient had somewhat of a redundant colon and that there were some attachments between the colon and left lateral abdominal wall. Robot was then docked at a 45-degree angle overlying the patient's left hip. A Graptor retractor was placed in robotic arm #1, fenestrated bipolar grasper was placed in robotic arm #2, and scissors were placed in robotic arm #1. The sigmoid colon just above the rectosigmoid junction was grasped and retracted anteriorly and slightly to the patient's left. One could then see the right ureter quite well as a result of the lighted ureteral stent. Peritoneum just medial to this was then incised overlying the anatomic location of the sacral promontory. The peritoneum was then continued to be excised in a zafvlxug-ey-txcrhh direction. Presacral space was then entered and the rectum was lifted anteriorly as the presacral space was dissected out along the sacrum, again in a njilzzdy-bj-ejciop direction. Dissection was continued posteriorly along the presacral space down to the anococcygeal ligament region. Lateral stalks of the rectum were then divided with the vessel sealer on the right. Next, attention was then focused to the left of the sigmoid colon and rectum. Graptor retractor was placed in such a fashion that the sigmoid colon and rectum was now retracted out laterally to the patient's right. White line of Toldt was then incised with a scissors and the left colon was reflected medially. The attachments between the sigmoid colon and left lateral abdominal wall were taken out under direct visualization. Left ureter was identified easily as a result of the lighted stent as well as with the use of Firefly fluorescence. Ureter was preserved in its entirety as the sigmoid colon was reflected medially. Peritoneum along the left lateral aspect of the rectum was then incised. Dissection was continued until the previous tissue plane that had been dissected out from the patient's right was entered. Dissection was then carried out in a ubqogwyk-wj-cizhbe direction along the left lateral aspect of the rectum and dissection was continued until the lateral stalks of the rectum along the left were also divided with the use of a vessel sealer. The rectovesical space was then incised with scissors and dissection was continued anterior to the rectum just behind the bladder itself. One could see externally upon the bladder surface the Oropeza catheter. The rectovesical space was continued to be dissected out in a qjfuwlrl-ko-klcbyd direction. At this point in time I felt that I was likely distal to the mass that had been previously described at 9 cm from the anal verge. I elected to go ahead and divide the mesorectum at this location with the use of a vessel sealer. Dissection was continued until the rectum had been skeletonized a few centimeters distal to where the rectovesical space had been opened. I placed the vessel sealer at this point in time posteriorly behind the rectum and lifted the rectum anteriorly. I then performed. Intraoperative colonoscopy and the colonoscope was inserted into the anus and advanced up to where one could see the extrinsic compression of the rectum from the vessel sealer. One could see that the polyp began at this location. At this point in time I felt that there was adequate dissection completed to resect this tubulovillous adenoma in its entirety. I returned back to the da Ijeoma console and a stapler with a blue load was then placed within robotic arm #1 and placed upon the rectum as far distally as possible. I elected to go ahead and perform an intraoperative colonoscopy again to document that there was no evidence of the polyp beyond the stapler. The da Ijeoma stapler was clamped and then an Olympus colonoscope was again inserted in the anus and advanced up to where the stapler had been placed extrinsically upon the rectum. There was no evidence for any polyp beyond where the stapler had been placed distally. Colonoscope was then removed. The stapler was then fired under direct visualization. This did not result in complete transection of the rectum. Therefore a reload was placed within the stapler and placed across the rectum and again fired. This did result in complete transection of the rectum. Next, attention was then focused back to the sacral promontory region. Just above the sacral promontory region, the mesentery to the sigmoid colon was then divided under direct visualization utilizing the vessel sealer up to the sigmoid colon. This point was perhaps 15 cm or so proximal to where the polyp had been discovered further distally. At this point in time the rectum had been divided and a complete total mesorectal excision had been performed circumferentially around the rectum. Mesentery to the sigmoid colon was then divided up to a point adjacent to the colon. To assess for vascularity, I had Anesthesia then administer 7.5 mg of ICG intravenously. Firefly fluorescence was utilized and one could see that the colon perfused quite well up to the point where the mesentery had been divided adjacent to the sigmoid colon. Next, I had my academic support assistant then place a Fairfield clamp upon the distal staple line of the rectum. Robot was then undocked. A 5-6 cm Pfannenstiel incision was then made a few fingerbreadths above the pubic symphysis. Dissection was carried down to the underlying rectus sheath. Rectus sheath was then opened transversely. Next, the underlying peritoneum and posterior rectus sheath was then opened with electrocautery and along the midline location. A wound protector was then placed through the small incision into the peritoneal cavity. Abelino clamp that had been placed upon the staple line was then advanced carefully up towards the wound protector. One could see the staple line upon the distal rectum. An additional Abelino clamp was then placed through the small Pfannenstiel incision and upon the staple line. Previously placed laparoscopic Fairfield clamp was then released and removed from the port site. The rectum and sigmoid colon was then delivered through the wound protector device that had been placed through the small Pfannenstiel incision. Blue towels were placed around the wound protector upon the anterior abdominal wall. Next, one could then see where the mesentery had been divided proximal to the location of the polyp upon the midsigmoid colon. Ochsner clamp was then placed upon the colon this location and the colon was transected proximal to the Ochsner clamp. The rectum and sigmoid colon were then passed off the table as a specimen. Did have the circulating nurse open the rectum along the antimesenteric portion of the tenia coli down to the rectum and then subsequently open up the rectum itself. One could see that the staple line was perhaps a uekdyaprri-qww-m-half to 2 cm beyond the polyp and that this large sessile polyp had indeed been transected in its entirety. Attention was then focused back to the transected end of the midsigmoid colon region. Three Allis clamps were then placed upon the colon in a triangulated fashion. A 28 mm EEA sizer was then placed into the transected end of the colon without difficulty. One could see some bleeding from where the colon had been transected indicative again of adequate blood supply. A 29 mm EEA stapler was then brought forth in the operative field. Anvil portion of the stapler was then placed into the transected end of the colon. A pursestring suture was then placed with 2-0 Prolene circumferentially around the transected end of the colon once the anvil had been placed into the colonic lumen. Pursestring suture was then tied securely resulting in nice imbrication of the colon wall to the anvil itself. Anvil was then returned back through the wound protector and into the peritoneal cavity. Gloves were then placed overlying the wound protector device so that a pneumoperitoneum could be reestablished. Pneumoperitoneum was then reestablished. The patient was placed again in Trendelenburg position. Prior areas of dissection were inspected and found be hemostatic in nature. Left and right ureters were again identified and remained to be preserved in their entirety. Next, I had my academic support assistant then advance the EEA stapler from through the anus and advance up to the prior staple line. Dillon portion of the EEA stapler was then allowed to exit adjacent to the prior staple line upon the rectum. Anvil portion of the stapler was then attached to the trocar portion of the EEA stapler and the EEA stapler was then tightened to the appropriate tension under direct visualization. Care was taken to make sure that the colon had not twisted upon itself and that the mesentery remained in a "straight fashion." Once the stapler had been tightened to the appropriate tension, it was then fired and a few minutes were allowed to elapse. Stapler was then loosened and removed from the anal verge. Two complete doughnuts were present within the stapler. Next, utilizing the irrigating device, saline was placed within the pelvis. The suction catheter was then placed overlying the sigmoid colon at about the level of the sacral promontory extrinsically resulting in some compression of the colon. Next, I had my academic support assistant then place a rigid proctoscope through the anal verge and inflate the distal sigmoid colon and remaining rectum until the anastomosis was fairly taut with air. At no point in time could one see any evidence for air bubbles coming forth from the anastomosis through the saline that had been placed within the pelvis. I.e. the anastomosis was airtight. Irrigant was then suctioned till clear. Rigid proctoscope was removed. Attention was then directed towards closure. The stapler port and the camera port that were the larger ports were then closed in a xgawmy-tk-uskhi fashion laparoscopically utilizing a laparoscopic suture passer and 0 Vicryl. Pneumoperitoneum was then released once each port had been removed under direct visualization. Previously placed oadkjz-rb-nfzsd sutures upon the larger port sites were then tied securely resulting in nice imbrication of the fascia. Attention was then focused to the Pfannenstiel incision. The peritoneum and posterior rectus sheath was closed a running fashion with a #1 PDS suture. The anterior rectus sheath was then closed transversely in a running fashion with #1 PDS suture. All skin incisions were then closed with viola. The patient has awakened from his anesthetic and currently is in the ICU/Recovery Room in stable condition. Additionally, it should be noted that Chin Solano APRN, was present throughout the entire case and played a pivotal role in providing assistance and exposure during the course of the procedure. CHELSEA
--- NOTE | 2016-07-11 08:36 | PNSURG ---
Subjective DATE: 07/11/16 TIME: 08:21 Interval History He is alert, oriented, talkative. States he didn't get much sleep because "the nurses were checking on me." He is able to tell me how he uses the SEWER LINE REPAIRER, states he has not used it much. States abd hurts when he coughs. Denies nausea. No flatus yet. Objective Vital Signs Date Time Temp Pulse Resp B/P Pulse Ox O2 Delivery O2 Flow Rate FiO2 07/11/16 06:07 12 07/11/16 04:22 93 07/11/16 04:00 95/53 92 Nasal Cannula 2.00 07/10/16 21:00 97.6 Height (Feet): 6 Height (Inches): 2.00 Weight (Kilograms): 116.300 BMI 32.9 General Appearance: Alert, Awake, Orientated x 3 Respiratory: FOUND: wheezes Cardiac: FOUND: regular rate, regular rhythm Abdominal Brief: FOUND: appropriately tender (at trocar sites), soft, NOT FOUND : BS normo active x4, tender (with lateral paplation) Incision: FOUND: viola present (dressings in tact and dry.) Male: FOUND: other (Adron with medium yellow urine, - was bloody post op last evening) Laboratory Laboratory Tests 07/10/16 09:17 07/11/16 04:41 Laboratory Tests 07/10/16 09:17 07/11/16 04:41 Procedure Procedure Date: Jul 10, 2016 Surgeon: Melida Sharpe Robotic assisted laparoscopic sigmoid resection, with primary anastomosis, intraoperative flexible sigmoidoscopy GS Assessment & Plan Problems: (1) Adenomatous polyp of sigmoid colon Status: Resolved (2) S/P laparoscopic-assisted sigmoidectomy Status: Acute (3) Diabetes mellitus Status: Chronic Qualifiers: Diabetes mellitus type: type 2 Diabetes mellitus complication status: without complication Diabetes mellitus terminal makeup operator insulin use: without skilled nursing use Qualified Codes: E11.9 - Type 2 diabetes mellitus without complications (4) GERD (gastroesophageal reflux disease) Status: Chronic Qualifiers: Esophagitis presence: esophagitis presence not specified Qualified Codes: K21.9 - Gastro-esophageal reflux disease without esophagitis (5) Bipolar disorder Status: Chronic (6) Schizoaffective disorder Status: Chronic Assessment 3-28 POD #1 Alert, VSS, BP 103/55 currently, He got 1 bolus of NS 1000 ml for report of SBP 80's during the night. Drop in HGB to 11.4 (14.1 on admission) will check HGB again at 10:00 am. Pain controlled with SEWER LINE REPAIRER Dilaudid and 1 dose Toradol. Daily labs. ADDENDUM: 1745 pm He has been passing some flatus during the day, ambulated a couple of times. Using minimal dilaudid SEWER LINE REPAIRER. Urine is now clear yellow. Wheezes a little more prominent, RT called for breathing treatments in addition to his scheduled inhalers. HGB stable at 11.7 at 10am, 11.4 at 4am. Will advance to clear liquid diet. Transfer to surgical floor. Leave ardon in place due to the low anterior resection and dissection that took place between bladder and rectum. DVT Prophylaxis: SCD'S, Lovenox GI Prophylaxis: Pepcid Code Status Full Code Hospital Course Summary Disclaimer The visit summary below is not to be considered part of the above Progress Note. Hospital Course Summary 07-10-2016 Admitted for elective robotic assisted sigmoid colectomy for adenomatous polyp nearly obstructing the rectosigmoid junction. See operative note for details. Transferred to CCU post op for close observation. 07-11 POD #1 Alert, VSS, BP 103/55 currently, He got 1 bolus of NS 1000 ml for report of SBP 80's during the night. Drop in HGB to 11.4 (14.1 on admission) will check HGB again at 10:00 am. Pain controlled with SEWER LINE REPAIRER Dilaudid and 1 dose Toradol. ADDENDUM: 1745 pm He has been passing some flatus during the day, ambulated a couple of times. Using minimal dilaudid SEWER LINE REPAIRER. Urine is now clear yellow. Wheezes a little more prominent, RT called for breathing treatments in addition to his scheduled inhalers. HGB stable at 11.7 at 10am, 11.4 at 4am. Will advance to clear liquid diet. Transfer to surgical floor. Leave ardon in place due to the low anterior resection and dissection that took place between bladder and rectum. MAURISIO SELBY APRN, KENS Jul 11, 2016 08:26
[2016-07-11] MEDS: CARVEDILOL 3.125 MG TABLET PO SCH ×2 (08:45→16:59)
[2016-07-11] MEDS: PANTOPRAZOLE 40mg INJECTION IV SCH (08:46)
[2016-07-11] MEDS: KETOROLAC 30mg/ml INJECTION IV PRN ×2 (08:46→20:19)
[2016-07-11] MEDS: FLUTICASONE HFA 110 MCG INHALER ORAL INH SCH ×2 (09:20→22:04)
--- NOTE | 2016-07-11 09:21 | ANESPO ---
Post-Op Note Date 07/11/16 Time: 09:21 Status Pt Participated in Evaluation: Pt participated in person Vital Signs Date Time Temp Pulse Resp B/P Pulse Ox O2 Delivery O2 Flow Rate FiO2 07/11/16 06:07 12 07/11/16 04:22 93 07/11/16 04:00 95/53 92 Nasal Cannula 2.00 07/10/16 21:00 97.6 Respiratory Function: Airway patent, Regular respirations Cardiovascular Function: Regular pulse Telemetry Pattern: SR Mental Status: Alert/oriented Pain Level Intensity: 0 Unable to Assess Pain Due To: Pt Sleeping Hydration: IV infusing Complications during Recovery None apparent Follow-Up Instructions Instructions Per Surgeon GRADY XIAO CRNA Jul 11, 2016 09:21
[2016-07-11] MEDS: LEVALBUTEROL INH.SOLN. 1.25mg/3ml Neb. AEROSOL PRN (09:46)
[2016-07-11 10:06] LABS: HGB - HEMOGLOBIN 11.7 GM/DL (13.5-17.5)
--- NOTE | 2016-07-11 10:20 | NUR ---
CM CM IN TO VISIT WITH PT. HE IS ALERT AND ORIENTED. HE STATES THAT HE LIVES ALONE. HE EXPRESSED INTEREST IN [facility] [address]. HE IS GIVEN CM CONTACT INFORMATION AND REASSURED THAT CM WILL CONTINUE TO ASSESS FOR DC NEEDS. Addendum: 07/11/16 at 1021 by CHAO PAINTING RN Amended: Links added.
[2016-07-11] MEDS: QUETIAPINE 300 MG PO SCH (16:59)
[2016-07-11] MEDS: ENOXAPARIN 40 MG/0.4 ML INJECTION SQ SCH (16:59)
[2016-07-11] MEDS: QUETIAPINE 200 MG PO SCH (16:59)
--- NOTE | 2016-07-11 17:31 | NUR ---
Activity: the patient has ambulated x2 this shift. He is steady when up. Flatus: the patient reports passing flatus x1 this shift. O2: remains at 2l/nc. Sao2 on room air is 89%. The patient coughs and deep breaths weakly. He does use IS with prompting well. Some wheezing heard anteriorly. Pain: the patient reports good pain relief with CITY SOLICITOR dilaudid. RR-12. ETCO@ is monitored
--- NOTE | 2016-07-11 19:56 | PNF ---
DATE OF SERVICE 07/11/2016 FINDINGS The patient today states he is having very little discomfort. He rates his pain as 2 on a scale from 1 to 10. EXAM VITAL SIGNS: Afebrile, normotensive. Please refer to EMR. ABDOMEN: Soft. Minimal incisional tenderness present. Incision clean, dry and intact. LABORATORY/RADIOGRAPHIC EVALUATION The patient had a CBC obtained earlier today and his hemoglobin did drift down slightly at 11.4. Hemoglobin was repeated later and remained stable at 11.7. BMP was obtained and found to be essentially within normal limits. ASSESSMENT 56-year-old gentleman status post robotic-assisted laparoscopic low anterior resection. Patient currently doing well. PLAN Will go ahead and transfer out to floor. Continue with current care. Given the fact that we did perform a low anterior resection and dissected posterior to the bladder to obtain a clear distal margin, I would recommend that we go ahead and leave the Oropeza catheter in place at this time. Will reassess tomorrow morning. CHELSEA
--- NOTE | 2016-07-11 20:07 | NUR ---
report report received at this time from olinda mccullough in [facility]cu.
--- NOTE | 2016-07-11 20:55 | NUR ---
TRANSFER PT TRANSFERRED TO ROOM 109 FROM [facility]U. PT ALERT AND ORIENTED X 3.
--- NOTE | 2016-07-11 20:55 | NUR ---
Transfer Pt transferred to Surgical Unit 109 at this time via wheelchair. Accompanied by NT. ISAEL Lazo. Pt A&Ox3 and appropriate. Able to transfer self from bed to WC with minimal assistance. Pt did c/o slight dizziness upon standing. IV to left hand intact. Transferred on RA. Telemetry in place. Pt belongings taken to new room. Report was given to MARU Diaz at 2006. Encouraged her to call with any questions or concerns.
[2016-07-11] MEDS: LISINOPRIL 20 MG TABLET PO SCH (22:00)
--- NOTE | 2016-07-11 22:25 | NUR ---
page paged panda adame, type soldering machine tender at this time to report pts bp of 97/59 and requested to hold hs lisinopril. panda said to hold the lisinopril dose for tonight. Also ordered to change atarax order from scheduled bid to prn bid. no other orders at this time. will continue to monitor.
[2016-07-11] MEDS: DIVALPROEX ER 500 MG TABLET PO SCH (22:37)
[2016-07-11] MEDS: ROSUVASTATIN 20 MG TABLET PO SCH (22:37)
[2016-07-12] VITALS (14 sets, daily range): BP systolic 97–138; BP diastolic 59–82; PULSE 73–88; RESP 12–16; TEMP 97–97.9; O2SAT 94–100
--- NOTE | 2016-07-12 01:44 | NUR ---
Chart Check 24 hour chart check completed
[2016-07-12] MEDS: D5-1/2 NS KCL 20 MEQ 1,000 ML IV SCH ×3 (04:53→16:05)
--- NOTE | 2016-07-12 05:44 | NUR ---
shift summary pt has slept throughout the night since pts transfer from [facility]. fluids ordered infusing in right hand, dilaudid clothing presser not used since transfer. pt received iv toradol right before transfer. clear liquid diet, no carbonation. ardon catheter with adequate output. bilat scd's. continuous oximetry. pt on 2L o2 via nc. bed locked and low, bed alarm on. call light within reach. will continue to monitor. Addendum: 07/12/16 at 0547 by NAVDEEP OLIVER RN pt did mention this morning "i passed gas again, twice actually!"
[2016-07-12 06:15] LABS: BASOPHILS % (AUTO) 0.1 % (0-2); HCT - HEMATOCRIT 32.2 % (41-53); HGB - HEMOGLOBIN 10.1 GM/DL (13.5-17.5); IMMATURE GRANULOCYTE # (AUTO) 0.01 T/MM3 (0.00-0.03); IMMATURE GRANULOCYTE % (AUTO) 0.1 % (0.0-0.5); LYMPHOCYTES # (AUTO) 2.5 T/MM3 (1-4.8); LYMPHOCYTES % (AUTO) 32.5 % (23-45); MEAN CORPUSCULAR HGB 29.3 UUG (26-34); MEAN CORPUSCULAR HGB CONC(MCHC 31.4 GM/DL (31-37); MEAN CORPUSCULAR VOLUME 93.3 UM3 (80-100); MONOCYTES # (AUTO) 1.1 T/MM3 (0-0.8); MONOCYTES % (AUTO) 14.9 % (0-9.0); NEUTROPHILS % (AUTO) 52.4 % (33-66); RED BLOOD COUNT 3.45 M/MM3 (4.50-5.90); WBC - WHITE BLOOD COUNT 7.6 T/MM3 (4.5-11.0)
[2016-07-12 06:23] LABS: ANION GAP 4 MEQ/L (5-15); BUN/CREATININE RATIO 18 RATIO (6-26); CALCIUM 8.1 MG/DL (8.4-10.2); CHLORIDE 107 MEQ/L (98-107); CO2 - CARBON DIOXIDE 31 MEQ/L (22-30); CREATININE 0.9 MG/DL (0.8-1.5); GLOMERULAR FILTRATION RATE 88; GLUCOSE 124 MG/DL (75-110); POTASSIUM 4.6 MEQ/L (3.6-5); SODIUM 142 MEQ/L (134-144)
--- NOTE | 2016-07-12 08:15 | PNSURG ---
Subjective DATE: 07/12/16 TIME: 08:04 Interval History He slept better last night, not as many interruptions. Has not been using PROTECTIVE SIGNAL INSTALLER HELPER since yesterday. Last Toradol was before transfer to the floor last evening. He states he passed gas "twice." Denies nausea. States pain is currently "0" and did not increase with lateral palpation. Objective Vital Signs Date Time Temp Pulse Resp B/P Pulse Ox O2 Delivery O2 Flow Rate FiO2 07/12/16 06:35 94 Nasal Cannula 1.00 07/12/16 06:25 12 07/12/16 04:09 97.1 74 97/59 Height (Feet): 6 Height (Inches): 2.00 Weight (Kilograms): 119.400 BMI 32.9 General Appearance: Alert, Awake, Orientated x 3 Respiratory: FOUND: wheezes (although less than yesterday) Cardiac: FOUND: regular rate, regular rhythm Abdominal Brief: FOUND: hypoactive bowel sounds, soft, NOT FOUND: distended Incision: FOUND: viola present Laboratory Laboratory Tests 07/10/16 09:17 07/11/16 04:41 07/12/16 05:33 Laboratory Tests 07/10/16 09:17 07/11/16 04:41 07/11/16 09:59 07/12/16 05:33 Pathology pending Procedure Procedure Date: Jul 10, 2016 Surgeon: Melida Sharpe Robotic assisted laparoscopic sigmoid resection, with primary anastomosis, intraoperative flexible sigmoidoscopy GS Assessment & Plan Problems: (1) Adenomatous polyp of sigmoid colon Status: Resolved (2) S/P laparoscopic-assisted sigmoidectomy Status: Acute (3) Diabetes mellitus Status: Chronic Qualifiers: Diabetes mellitus type: type 2 Diabetes mellitus complication status: without complication Diabetes mellitus residential insulin use: without termite exterminator helper use Qualified Codes: E11.9 - Type 2 diabetes mellitus without complications (4) GERD (gastroesophageal reflux disease) Status: Chronic Qualifiers: Esophagitis presence: esophagitis presence not specified Qualified Codes: K21.9 - Gastro-esophageal reflux disease without esophagitis (5) Bipolar disorder Status: Chronic (6) Schizoaffective disorder Status: Chronic Assessment 3-29 POD #2 Transferred to 109 last evening Slightly hypotensive, SBP 90's to low 100's, will HOLD lisinopril for now HGB stable at 10.1 today, will still get daily labs PT/OT ordered for strength, endurance and ADL's Start bladder training with catheter today, then DC ardon later today or tomorrow Passing flatus, will add Ensure and advance diet as tolerated. Will DC PROTECTIVE SIGNAL INSTALLER HELPER and decrease IVF to 75 ml/hr DVT Prophylaxis: SCD'S, Lovenox GI Prophylaxis: Pepcid Code Status Full Code Hospital Course Summary Disclaimer The visit summary below is not to be considered part of the above Progress Note. Hospital Course Summary 07-10-2016 Admitted for elective robotic assisted sigmoid colectomy for adenomatous polyp nearly obstructing the rectosigmoid junction. See operative note for details. Transferred to CCU post op for close observation. 3 POD #1 Alert, VSS, BP 103/55 currently, He got 1 bolus of NS 1000 ml for report of SBP 80's during the night. Drop in HGB to 11.4 (14.1 on admission) will check HGB again at 10:00 am. Pain controlled with PROTECTIVE SIGNAL INSTALLER HELPER Dilaudid and 1 dose Toradol. ADDENDUM: 1745 pm He has been passing some flatus during the day, ambulated a couple of times. Using minimal dilaudid PROTECTIVE SIGNAL INSTALLER HELPER. Urine is now clear yellow. Wheezes a little more prominent, RT called for breathing treatments in addition to his scheduled inhalers. HGB stable at 11.7 at 10am, 11.4 at 4am. Will advance to clear liquid diet. Transfer to surgical floor. Leave ardon in place due to the low anterior resection and dissection that took place between bladder and rectum. 07-12 POD #2 Transferred to 109 last evening Slightly hypotensive, SBP 90's to low 100's, will HOLD lisinopril for now HGB stable at 10.1 today, will still get daily labs PT/OT ordered for strength, endurance and ADL's Start bladder training with catheter today, then DC ardon later today or tomorrow Passing flatus, will add Ensure and advance diet as tolerated. Will DC PROTECTIVE SIGNAL INSTALLER HELPER and decrease IVF to 75 ml/hr MAURISIO SELBY APRN, CWS Jul 12, 2016 08:08
[2016-07-12] MEDS: ENOXAPARIN 40 MG/0.4 ML INJECTION SQ SCH (08:42)
[2016-07-12] MEDS: PANTOPRAZOLE 40mg INJECTION IV SCH (08:42)
[2016-07-12] MEDS: CARVEDILOL 3.125 MG TABLET PO SCH ×2 (08:42→17:39)
[2016-07-12] MEDS: FLUTICASONE HFA 110 MCG INHALER ORAL INH SCH ×2 (08:44→19:02)
[2016-07-12] MEDS: LEVALBUTEROL INH.SOLN. 1.25mg/3ml Neb. AEROSOL PRN (09:40)
--- NOTE | 2016-07-12 12:54 | NUR ---
CM THIS WORKER MET WITH PT IN ROOM. NO OTHERS PRESENT AT THIS TIME. THIS WORKER INTRODUCED SELF AND ROLE OF CASE MANAGEMENT. PT REPORTED THAT HE LIVED ALONE, HAS A LAB SPECIALIST THROUGH [facility] AND ALSO HAS AN "END STAPLER" ABDOULAYE. PT REPORTED THAT HIS MOTHER IS ELDERLY AND ISN'T ABLE TO HELP MUCH. PT REPORTED THAT HE WOULD BE CONCERNED ABOUT GOING UP THE STAIRS AND HAVING TO CARRY GROCERIES. PT REPORTED THAT HIS LAB SPECIALIST FROM [facility] IS PLANNING TO BE AT THE HOSPITAL AT 1400 AND REQUESTED THAT THIS WORKER ALSO COME TO SPEAK WITH THE LAB SPECIALIST. PT REPORTED THAT HE WOULD LIKE HOME HEALTH SERVICES AT TIME OF DISCHARGE. CASE MANAGEMENT WILL CONTINUE TO FOLLOW AND ASSIST IN DISCHARGE PLANNING.
--- NOTE | 2016-07-12 13:37 | PNF ---
DATE 07/12/2016 FINDINGS The patient states he has been passing flatus. He denies any significant abdominal pain. States it is "a little tender when he gets up". He has not been utilizing his HVAC REFRIGERATION TECHNICIAN. OBJECTIVE Vitals: Afebrile, slightly hypotensive. Last recorded blood pressure is 97/59. ABDOMEN: Soft. Minimal incisional tenderness. No evidence for guarding or rebound. LABORATORY/RADIOGRAPHIC EVALUATION CBC was obtained and found to be overall stable. Hemoglobin is slightly decreased at 10.1. BMP obtained and found to be essentially within normal limits. ASSESSMENT 56-year-old gentleman status post robotic assisted laparoscopic low anterior resection secondary to large tubulovillous adenoma. The patient clinically doing well. PLAN Will go ahead and advance diet as tolerated. Will do some bladder training today and JAS Oropeza later today. Will continue to follow closely. Overall quite pleased with the patient's progress. CHELSEA
--- NOTE | 2016-07-12 13:45 | NUR ---
CM THIS WORKER RETURNED AT REQUEST OF PT. ALSO PRESENT WAS PT'S TAR WORKER, SANDY FROM [employer]. THIS WORKER DISCUSSED DISCHARGE PLANNING WITH PT. PT PLANNING TO RETURN HOME AT TIME OF DISCHARGE. PT REQUESTED HELP FROM [facility] FOR ASSISTANCE WITH GOING TO THE GROCERY STORE AND CARRYING GROCERIES INTO HIS HOME. PT CONCERNED ABOUT WHO AND HOW THIS WOULD BE COMPLETED. PV TAR WORKER PRESENT AND REPORTED THAT THEY WOULD TRY TO GET SOME APPROVAL TO ASSIST PT IN THESE TASKS. THIS WORKER ASSURED PT THAT WE WOULD BE ABLE TO ASSIST IN THE DISCHARGE PLANNING NEEDS.
[2016-07-12] MEDS: HYDROCODONE/APAP 5 mg/325 mg TABLET PO PRN ×2 (16:07→22:29)
[2016-07-12] MEDS: QUETIAPINE 200 MG PO SCH (17:40)
[2016-07-12] MEDS: QUETIAPINE 300 MG PO SCH (17:40)
--- NOTE | 2016-07-12 19:45 | NUR ---
Summary Pt A&O X3. Pt was weaned down to RA, VS stable on RA. Pt up to the chair most of the shift. Pt ambulated in the hallway with therapy this AM, and ambulated with this RN two more times. Pt has an appetite and tolerating PO intake well. Pt has denied nausea. Pt has denied pain most of the shift, Pt reported pain one time PO pain medication was given at that time. Bladder training started, no leaking and Pt tolerating well.
[2016-07-12] MEDS: DIVALPROEX ER 500 MG TABLET PO SCH (22:28)
[2016-07-12] MEDS: ROSUVASTATIN 20 MG TABLET PO SCH (22:29)
[2016-07-13 00:35] VITALS: BP 116/72; PULSE 79; RESP 16; TEMP 97.3; O2SAT 94
[2016-07-13 04:10] VITALS: BP 118/72; PULSE 81; RESP 18; TEMP 96.8; O2SAT 93
--- NOTE | 2016-07-13 05:26 | NUR ---
SHIFT SUMMARY PATIENT IS ALERT AND ORIENTED X3 THIS SHIFT. VITAL SIGNS STABLE ON ROOM AIR. PATIENT IS UP WITH ASSIST X1. BLADDER TRAINING GOING WELL WITH NO LEAKAGE BETWEEN VOIDS ON THE ODD HOURS, AND REPORTING NEEDING TO VOID. PATIENT REPORTED PAIN EARLY IN SHIFT, BUT AFTER PO PAIN MEDICATION PATIENT HASN'T REPORTED PAIN SINCE. OTHERWISE PATIENT SLEPT THROUGH THE NIGHT. WILL CONTINUE TO MONITOR.
[2016-07-13 06:25] LABS: BASOPHILS % (AUTO) 0.1 % (0-2); EOSINOPHILS # (AUTO) 0.1 T/MM3 (0-0.5); EOSINOPHILS % (AUTO) 0.7 % (0-4); HCT - HEMATOCRIT 34.1 % (41-53); HGB - HEMOGLOBIN 10.8 GM/DL (13.5-17.5); LYMPHOCYTES % (AUTO) 43.5 % (23-45); MEAN CORPUSCULAR HGB 29.3 UUG (26-34); MEAN CORPUSCULAR HGB CONC(MCHC 31.7 GM/DL (31-37); MEAN CORPUSCULAR VOLUME 92.4 UM3 (80-100); MEAN PLATELET VOLUME 10.9 UM3 (9.4-12.4); MONOCYTES # (AUTO) 0.8 T/MM3 (0-0.8); NEUTROPHILS % (AUTO) 43.7 % (33-66); RED BLOOD COUNT 3.69 M/MM3 (4.50-5.90); WBC - WHITE BLOOD COUNT 6.9 T/MM3 (4.5-11.0)
[2016-07-13 06:33] LABS: ANION GAP 4 MEQ/L (5-15); BUN/CREATININE RATIO 20 RATIO (6-26); CALCIUM 8.7 MG/DL (8.4-10.2); CHLORIDE 108 MEQ/L (98-107); CO2 - CARBON DIOXIDE 32 MEQ/L (22-30); CREATININE 0.8 MG/DL (0.8-1.5); GLOMERULAR FILTRATION RATE 101; GLUCOSE 94 MG/DL (75-110); POTASSIUM 4.3 MEQ/L (3.6-5); SODIUM 144 MEQ/L (134-144)
[2016-07-13 07:19] VITALS: PULSE 83; RESP 16
[2016-07-13 07:22] VITALS: BP 130/75; PULSE 83; RESP 16; TEMP 97.5; O2SAT 94
[2016-07-13] MEDS: PANTOPRAZOLE 40mg INJECTION IV SCH (08:21)
[2016-07-13] MEDS: CARVEDILOL 3.125 MG TABLET PO SCH (08:21)
[2016-07-13] MEDS: ENOXAPARIN 40 MG/0.4 ML INJECTION SQ SCH (08:22)
[2016-07-13] MEDS ORDERED: IBUPROFEN 600 MG TABLET PO PRN (08:30)
[2016-07-13] MEDS ORDERED: BISACODYL 5 MG E.C. TABLET PO ONE (08:45)
[2016-07-13] MEDS ORDERED: DOCUSATE SODIUM 100 MG CAPSULE PO SCH (09:00)
[2016-07-13] MEDS: FLUTICASONE HFA 110 MCG INHALER ORAL INH SCH (09:52)
[2016-07-13 11:33] VITALS: BP 137/79; PULSE 77; RESP 16; TEMP 97.5; O2SAT 94
[2016-07-13] MEDS ORDERED: IBUP-2067 PO (14:15)
[2016-07-13] MEDS ORDERED: DOCU-168 PO (14:15)
[2016-07-13] MEDS ORDERED: HYDR-4246 PO (14:15)
--- NOTE | 2016-07-13 14:33 | PNSURG ---
Subjective DATE: 07/13/16 TIME: 14:28 Interval History Doing well, regular diet, voiding, ambulating, passing flatus. Minimal pain medication used. I talked to Case Management about concerns with food at home, Amari states all he has is peanut butter and bread. CM will contact his case management social worker and verify need, and use food from the [facility] [employer] if needed. Objective Vital Signs Date Time Temp Pulse Resp B/P Pulse Ox O2 Delivery O2 Flow Rate FiO2 07/13/16 11:33 97.5 77 16 137/79 94 Room Air 07/12/16 19:57 2.00 Height (Feet): 6 Height (Inches): 2.00 Weight (Kilograms): 120.400 BMI 32.9 General Appearance: Alert, Orientated x 3 Respiratory: FOUND: clear bilaterally Cardiac: FOUND: regular rate, regular rhythm Abdominal Brief: FOUND: soft, NOT FOUND: tender Incision: FOUND: Clean, Dry, Intact, viola present (dressings removed), NOT FOUND: erythema Laboratory Laboratory Tests 07/11/16 04:41 07/12/16 05:33 07/13/16 05:47 Laboratory Tests 07/11/16 04:41 07/11/16 09:59 07/12/16 05:33 07/13/16 05:47 Pathology pending Procedure Procedure Date: Jul 10, 2016 Surgeon: Melida Sharpe Robotic assisted laparoscopic sigmoid resection, with primary anastomosis, intraoperative flexible sigmoidoscopy GS Assessment & Plan Problems: (1) Adenomatous polyp of sigmoid colon Status: Resolved (2) S/P laparoscopic-assisted sigmoidectomy Status: Acute (3) Diabetes mellitus Status: Chronic Qualifiers: Diabetes mellitus type: type 2 Diabetes mellitus complication status: without complication Diabetes mellitus ad terminal makeup operator insulin use: without ad terminal makeup operator use Qualified Codes: E11.9 - Type 2 diabetes mellitus without complications (4) GERD (gastroesophageal reflux disease) Status: Chronic Qualifiers: Esophagitis presence: esophagitis presence not specified Qualified Codes: K21.9 - Gastro-esophageal reflux disease without esophagitis (5) Bipolar disorder Status: Chronic (6) Schizoaffective disorder Status: Chronic Assessment 3-30 POD #3 Doing well, regular diet, passing flatus, VSS Incisions CDI. Plan on discharge today with follow up appointment July 25. DVT Prophylaxis: SCD'S, Lovenox GI Prophylaxis: Pepcid Code Status Full Code Hospital Course Summary Disclaimer The visit summary below is not to be considered part of the above Progress Note. Hospital Course Summary 07-10-2016 Admitted for elective robotic assisted sigmoid colectomy for adenomatous polyp nearly obstructing the rectosigmoid junction. See operative note for details. Transferred to CCU post op for close observation. 3-28 POD #1 Alert, VSS, BP 103/55 currently, He got 1 bolus of NS 1000 ml for report of SBP 80's during the night. Drop in HGB to 11.4 (14.1 on admission) will check HGB again at 10:00 am. Pain controlled with BATTERY CONTAINER INSPECTOR Dilaudid and 1 dose Toradol. ADDENDUM: 1745 pm He has been passing some flatus during the day, ambulated a couple of times. Using minimal dilaudid BATTERY CONTAINER INSPECTOR. Urine is now clear yellow. Wheezes a little more prominent, RT called for breathing treatments in addition to his scheduled inhalers. HGB stable at 11.7 at 10am, 11.4 at 4am. Will advance to clear liquid diet. Transfer to surgical floor. Leave ardon in place due to the low anterior resection and dissection that took place between bladder and rectum. 3 POD #2 Transferred to 109 last evening Slightly hypotensive, SBP 90's to low 100's, will HOLD lisinopril for now HGB stable at 10.1 today, will still get daily labs PT/OT ordered for strength, endurance and ADL's Start bladder training with catheter today, then DC ardon later today or tomorrow Passing flatus, will add Ensure and advance diet as tolerated. Will DC BATTERY CONTAINER INSPECTOR and decrease IVF to 75 ml/hr 3-30 POD #3 Doing well, regular diet, passing flatus, VSS Incisions CDI. Plan on discharge today with follow up appointment July 25. MAURISIO SELBY APRN, CWS Jul 13, 2016 14:32
--- NOTE | 2016-07-13 14:36 | GSDISC ---
General Date Date DATE: 07/13/16 TIME: 14:34 Attending Physician Ronald Brody MD,Facs,Cws Admitting Physician Ronald Brody MD,Facs,Cws Consulting Physician Discharge Diagnosis: (1) Adenomatous polyp of sigmoid colon Status: Resolved (2) Schizoaffective disorder Status: Chronic (3) Hypertension Status: Chronic (4) Bipolar disorder Status: Chronic (5) GERD (gastroesophageal reflux disease) Status: Chronic (6) Diabetes mellitus Status: Chronic Permanent Comment: diet controlled with A1c of about 7 Last Edited By: Cyndi Tomas on Mar 20, 2016 14:06 Procedures Robotic assisted laparoscopic sigmoid resection, with primary anastomosis, intraoperative flexible sigmoidoscopy Laboratory Laboratory Laboratory Tests Test 07/12/16 17:43 07/12/16 22:20 07/13/16 05:47 07/13/16 06:44 Glucometer 105mg/dL 109mg/dL 136mg/dL White Blood Count 6.9T/MM3 Red Blood Count 3.69M/MM3 Hemoglobin 10.8GM/DL Hematocrit 34.1% Mean Corpuscular Volume 92.4UM3 Mean Corpuscular Hemoglobin 29.3UUG Mean Corpuscular Hemoglobin Concent 31.7GM/DL RDW Standard Deviation 46.8FL Platelet Count 141T/MM3 Mean Platelet Volume 10.9UM3 Immature Granulocyte % (Auto) 0.0% Neutrophils (%) (Auto) 43.7% Lymphocytes (%) (Auto) 43.5% Monocytes (%) (Auto) 12.0% Eosinophils (%) (Auto) 0.7% Basophils (%) (Auto) 0.1% Absolute Immature Granulocyte (auto 0.00T/MM3 Absolute Neutrophils (auto) 3.0T/MM3 Absolute Lymphocytes (auto) 3.0T/MM3 Absolute Monocytes (auto) 0.8T/MM3 Absolute Eosinophils (auto) 0.1T/MM3 Absolute Basophils (auto) 0.0T/MM3 Turbidity < 20 Sodium Level 144MEQ/L Potassium Level 4.3MEQ/L Chloride Level 108MEQ/L Carbon Dioxide Level 32MEQ/L Anion Gap 4MEQ/L Blood Urea Nitrogen 16.0MG/DL Creatinine 0.8MG/DL Glomerular Filtration Rate Calc 101 BUN/Creatinine Ratio 20RATIO Glucose Level 94MG/DL Calculated Osmolality 278MOSM/KG Calcium Level 8.7MG/DL Icterus Index < 2 Chemistry Specimen Hemolysis < 15 Test 07/13/16 11:32 Glucometer 89mg/dL Pathology Pathology Pending Hospital Course 07-10-2016 Admitted for elective robotic assisted sigmoid colectomy for adenomatous polyp nearly obstructing the rectosigmoid junction. See operative note for details. Transferred to CCU post op for close observation. 3 POD #1 Alert, VSS, BP 103/55 currently, He got 1 bolus of NS 1000 ml for report of SBP 80's during the night. Drop in HGB to 11.4 (14.1 on admission) will check HGB again at 10:00 am. Pain controlled with ENGINEER INTERNSHIP Dilaudid and 1 dose Toradol. ADDENDUM: 1745 pm He has been passing some flatus during the day, ambulated a couple of times. Using minimal dilaudid ENGINEER INTERNSHIP. Urine is now clear yellow. Wheezes a little more prominent, RT called for breathing treatments in addition to his scheduled inhalers. HGB stable at 11.7 at 10am, 11.4 at 4am. Will advance to clear liquid diet. Transfer to surgical floor. Leave ardon in place due to the low anterior resection and dissection that took place between bladder and rectum. 3 POD #2 Transferred to 109 last evening Slightly hypotensive, SBP 90's to low 100's, will HOLD lisinopril for now HGB stable at 10.1 today, will still get daily labs PT/OT ordered for strength, endurance and ADL's Start bladder training with catheter today, then DC ardon later today or tomorrow Passing flatus, will add Ensure and advance diet as tolerated. Will DC ENGINEER INTERNSHIP and decrease IVF to 75 ml/hr 3-30 POD #3 Doing well, regular diet, passing flatus, VSS Incisions CDI. Plan on discharge today with follow up appointment July 25. Home Meds Active Scripts Docusate Sodium (Colace) 100 Mg Capsule, 100 MG PO DAILY for 10 Days, #10 CAP If stools become too loose, may stop the Stool Softener. Prov:MAURISIO SELBY APRN, CWS 07/13/16 Ibuprofen (Ibuprofen) 600 Mg Tablet, 600 MG PO Q6H Y for PAIN for 14 Days, #56 TAB Prov:MAURISIO SELBY APRN, CWS 3/30/17 Hydrocodone/Acetaminophen (Edwards 5-325 Tablet) 5-325 Tablet, 1-2 TAB PO Q5H Y for PAIN, #30 TAB Prov:MAURISIO SELBY APRN, CWS 07/13/16 Reported Medications Hydroxyzine Pamoate (Hydroxyzine Pamoate) 25 Mg Capsule, 1 CAP PO BID, #10 05/04/16 Quetiapine Fumarate (Seroquel Xr) 300 Mg Tablet, 300 MG PO WS 05/03/16 Quetiapine Fumarate (Seroquel Xr) 200 Mg Tablet, 200 MG PO WS 05/03/16 Carvedilol (Carvedilol) 3.125 Mg Tablet, 3.125 MG PO BID 05/03/16 Aspirin (Aspirin) 81 Mg Tab.chew, 81 MG PO DAILY 05/03/16 Levalbuterol Tartrate (Xopenex Hfa) 15 Gm Hfa.aer.ad, 1 PUFF INH Q4H Y for PRN ORDERS 12/27/15 Rosuvastatin Calcium (Crestor) 20 Mg Tablet, 20 MG PO HS 12/27/15 Quetiapine Fumarate (Quetiapine Fumarate) 25 Mg Tablet, 25 MG PO DAILY Y for ANXIETY 12/27/15 Buspirone HCl (Buspirone HCl) 15 Mg Tablet, 15 MG PO BID 12/27/15 Fluticasone Propionate (Flovent HFA 110mcg) 120 Puff/12 G Inhaler, 2 PUFF INH BID 12/27/15 Lisinopril (Lisinopril) 20 Mg Tablet, 20 MG PO HS 12/27/15 Omeprazole (Prilosec) 20 Mg Tablet.dr, 20 MG PO BID 05/27/12 Risperidone Microspheres (Risperdal Consta) 50 Mg/2 Ml/Syr Syringe, 50 MG IM Q2WK 12/14/08 Divalproex Sodium (Depakote Er) 500 Mg Tab.sr.24h, 1000 MG PO HS 12/31/08 Discharge Disposition good condition. [place] assisting with home monitoring per Case Management MAURISIO SELBY APRN, MICAH Jul 13, 2016 14:36
--- NOTE | 2016-07-13 14:46 | NUR ---
MAGALYS CM IN TO VISIT WITH PT. HE IS ALERT AND ORIENTED. HE PLANS TO DC HOME. HE IS WITNESSED BY THIS CM TO BE UP IN HALLS WITH STEADY GAIT AND STAND BY ASSISTANCE. PT REPORTS THAT HE WON'T BE ABLE TO BUY FOOD UNTIL MONDAY 07/17. HE IS GIVEN CARING CLOSET FOOD FOR THE WEEKEND. HE HAS MADE ARRANGEMENTS FOR A FRIEND FROM [facility] TO TAKING HIM SHOPPING ON SUNDAY. CM LEFT FOR SANDY AT [place] TO LET HIM KNOW THAT PT WILL DC TODAY. PT FRIEND, ABDOULAYE WILL TRANSPORT PATIENT AT 1730. EKATERINA RN IS MADE AWARE.
[2016-07-13 15:28] VITALS: BP 151/84; PULSE 74; RESP 18; TEMP 96; O2SAT 96
--- NOTE | 2016-07-13 17:38 | PNF ---
DATE 07/13/2016 FINDINGS The patient this afternoon is requesting to go home. He states that he is "feeling great." He has been passing flatus. He has not had a bowel movement yet but has been tolerating a regular diet. PHYSICAL EXAMINATION VITAL SIGNS: Afebrile, normotensive. ABDOMEN: Soft, nontender. Laboratory/RADIOGRAPH EVALUATION Patient had a CBC and BMP today that were found to be essentially within normal limits. ASSESSMENT A 56-year-old gentleman status post robotic-assisted laparoscopic low anterior resection. Patient doing well. PLAN I do feel that we can go ahead and discharge the patient to home this evening. He is tolerating a regular diet and has been passing flatus. I am pleased with the patient's progress. Final pathology is still pending from his colonic resection. CHELSEA
--- NOTE | 2016-07-13 18:22 | NUR ---
Discharge Pt discharged at this time through the main entrance via ambulatory in the company of an adult. VS stable on RA. IV catheter DC'd, catheter tip intact. Pts ID bands were removed at this time. Discharge instructions and packet were gone over with Pt. This RN discussed incision care, activity, diet, restrictions, medications, and follow up appt. Prescription for PO [place] was given to Pt in discharge packet. Pt verbalized understanding and had no further questions.
== END 2016-07-13 18:22 | disposition home or self-care (01) | DRG 395 ==
LOC: CCU 07-10 08:47 → SRG 07-11 21:03
PROVIDERS: ADMIT Surgery; ATTEND Surgery
PROC: 0DBN8ZX Excision of Sigmoid Colon, Via Natural or Artificial Opening Endoscopic, Diagnostic (ICD-10-PCS; principal; 2016-07-10 11:41)
PROC: 8E0W4CZ Robotic Assisted Procedure of Trunk Region, Percutaneous Endoscopic Approach (ICD-10-PCS; 2016-07-10 11:41)
DX: D12.8 Benign neoplasm of rectum (principal); E11.9 Type 2 diabetes mellitus without complications; K21.9 Gastro-esophageal reflux disease without esophagitis; F31.9 Bipolar disorder, unspecified; F25.9 Schizoaffective disorder, unspecified; I10 Essential (primary) hypertension; Z79.82 Long term (current) use of aspirin; Z79.899 Other long term (current) drug therapy
CPT/HCPCS: 44204; S2900; 36415; 80048; 80053; 82948; 85018; 85025; 86850; 86900; 86901; 88309; 88341; 88342; 93005; 94640